=== PATIENT | male | born 1955 | race Caucasian/White ===

== ENCOUNTER 2016-10-20 21:41 | Inpatient (IN) | payer OTHER ==
--- NOTE | ~2016-10-20 | OP ---
Record Of Operation [facility] [address] [place]. [address] NAME: FREDA COBB SR : 55 STATUS : ADM IN PAT#: [id number] AGE: 61 ADM/REG DATE : 10/21/16 MR#: [id number] REPORT SERV DATE: 10/24/16 DICTATED BY: SONY MOLINA DATE: 10/24/16 REPORT STATUS : Draft TRANSCRIBED BY: MODL DATE: 10/24/16 DATE OF PROCEDURE: 10/24/2016 PREOPERATIVE DIAGNOSIS: The patient with ischemic threatened left lower extremity with previous thrombectomy and thrombolysis with recurrent ischemia. POSTOPERATIVE DIAGNOSIS: The patient with ischemic threatened left lower extremity with previous thrombectomy and thrombolysis with recurrent ischemia. SURGEON PERFORMED: Left femoral to distal popliteal and tibioperoneal trunk bypass using reverse saphenous vein. SURGEON: Sony Molina M.D. ELECTROMATIC TYPIST: Jarrod. DESCRIPTION OF PROCEDURE: The patient was placed under general endotracheal anesthesia. Both legs prepped and draped in a sterile fashion. Saphenous vein was removed from the right leg with VasoView technique. Left leg, the common femoral and superficial femoral- profunda were all exposed through a longitudinal incision in the thigh. The distal popliteal and tibioperoneal trunk were exposed through a medial knee incision. Below the knee, this was extension of the previous fasciotomy. The popliteal fascia was opened. The distal popliteal, tibioperoneal trunk, anterior tibial were all dissected and encircled with vessel loops. He was given 5000 units of heparin. The distal popliteal was opened and extended down to the tibioperoneal trunk. The vein was cut, spatulated, sewn end to side. There was a subfascial tunneling created up to the femoral region with the graft was pulled through. The femoral vessels were occluded. Arteriotomy made in the distal common femoral and extended with Segal scissors. End-to-side anastomosis was done to the vein graft. After this was done, retrograde and prograde flushing carried out at both anastomosis. Clamps were then released. The patient had decent flow below the bypass graft and the catheterization, although signals in the foot was still poor. He was given 5000 units of heparin during the procedure. The wounds were all irrigated and closed with 2-0 and 3-0 Vicryl, skin closed with subcuticular in the groin, and cielo at the knee. ESTIMATED BLOOD LOSS: 200 mL. The patient was stable during the operation, went to recovery room in good condition. MG/FREDDY Sony Molina M.D. / [id number] Record Of Operation [address] [address] NAME: FREDA COBB SR : 55 STATUS : ADM IN PAT#: [id number] AGE: 61 ADM/REG DATE : 10/21/16 MR#: [id number] REPORT SERV DATE: 10/24/16 DICTATED BY: SONY MOLINA DATE: 10/24/16 REPORT STATUS : Draft TRANSCRIBED BY: FREDDY DATE: 10/24/16 CC: Sony Molina M.D.
--- NOTE | ~2016-10-20 | OP ---
Record Of Operation [facility] [address] [place]. [address] NAME: FREDA COBB SR : 55 STATUS : ADM IN PAT#: [id number] AGE: 61 ADM/REG DATE : 10/21/16 MR#: [id number] REPORT SERV DATE: 10/24/16 DICTATED BY: JOSE MOLINA DATE: 10/24/16 REPORT STATUS : Draft TRANSCRIBED BY: MODL DATE: 10/24/16 DATE OF PROCEDURE: 10/23/2016 PREOPERATIVE DIAGNOSIS: Status post left lower limb ischemia with emergent thrombolysis and thrombectomy with recurrent ischemia of the left lower extremity. POSTOPERATIVE DIAGNOSIS: Status post left lower limb ischemia with emergent thrombolysis and thrombectomy with recurrent ischemia of the left lower extremity with findings of recurrent thrombosis of the superficial femoral artery and popliteal artery. SURGERY PERFORMED: 1. Left lower extremity arteriogram. 2. AngioJet thrombectomy of the SFA and popliteal. SURGEON: Jose Molina M.D. DESCRIPTION OF PROCEDURE: The patient was brought back to the operating suite from the ICU after developing cool extremity with signs of ischemia. This is recurrent from his initial presentation. Placed on the operating room table. Under IV sedation, the right femoral artery was cannulated with ultrasound direction. The UF was placed into the aorta and then this catheter was worked up and over the bifurcation. Angiogram of left lower extremity showing the common femoral profunda was open. The SFA was opened down to a previously placed stent and then occluded. I did reconstitute the distal popliteal. This was able to be crossed easily with a Glidewire. A 645 Terumo placed up and over the bifurcation, then AngioJet thrombectomy done of the entire SFA and proximal popliteal. After multiple passes, repeat angiogram finally showing flow through the area, although it was sluggish. The tibials were opened so far as anterior tibial but the runoff from the tibial vessels appeared to be slow as well. He was given heparin during the procedure. It was felt that we could not improve upon the latest angiogram. Therefore, the sheath was removed and Angio Seal was used for closure, which worked effectively. Dry dressings applied. ESTIMATED BLOOD LOSS: 30 mL. MG/MODL Jose Molina M.D. / [id number] CC: Jose Molina M.D.
--- NOTE | ~2016-10-20 | OP ---
Record Of Operation [facility] [address] [place]. [address] NAME: FREDA CERDA SR : 55 STATUS : ADM IN PAT#: [id number] AGE: 61 ADM/REG DATE : 10/21/16 MR#: [id number] REPORT SERV DATE: 11/01/16 DICTATED BY: LORETO HOLLEY DATE: 11/01/16 REPORT STATUS : Draft TRANSCRIBED BY: MODL DATE: 11/01/16 DATE OF PROCEDURE: 11/01/2016 PREOPERATIVE DIAGNOSES: Status post left leg revascularization and fasciotomy with necrotic muscle within fasciotomy incisions. POSTOPERATIVE DIAGNOSES: Status post left leg revascularization and fasciotomy with necrotic muscle within fasciotomy incisions. PROCEDURE: 1. Sharp excisional debridement of subcutaneous tissue, fascia, and muscle of both fasciotomy incision in the left lower leg, total of 40 sq cm in each incision. 2. Placement of negative pressure wound dressing. SURGEON: Loreto Holley M.D. SAXOPHONE ASSEMBLER: Luiza. ANESTHESIA: General endotracheal. ESTIMATED BLOOD LOSS: 25 mL. COMPLICATIONS: None. INDICATION: Mr. Cerda is a 61-year-old patient of Dr. Batista and Dr. Lorenzo, who underwent left leg revascularization and required fasciotomy. Both fasciotomy incisions were still open. He needs debridement. He was brought to the operating room for the same. DETAILS OF PROCEDURE: After informed consent was obtained, the patient was brought to the operating room and placed in supine position. After administration of anesthesia, he was intubated. He was prepped and draped in usual sterile fashion. I examined the medial fasciotomy incision first. There was obvious necrotic muscle in this. Sharp excisional debridement of the muscle was undertaken. There was significant amount of hematoma evacuated as well. Total length of the incision was 21 cm in length, width was 5 cm, proximal depth was 2 cm, although there was some tunneling of the hematoma. Total amount of muscle, subcutaneous tissue, and fascia debrided was approximately 40 sq cm. We ensured hemostasis. There was some reactivity of the muscle to cautery. Hemostasis was achieved. I irrigated with sterile saline. It was obvious this incision was not able to be closed at this point. I then turned my attention to the lateral fasciotomy incision. Again, there was necrotic muscle, subcutaneous tissue, and fascia. This was sharply excised down to healthy bleeding tissue. Proximal length of this incision was 21.5 cm in length, 5 cm in width, 2 cm in depth, although again there was some tunneling under the skin flaps. Hematoma was evacuated. Total amount of muscle, fascia, and subcutaneous tissue excised again was approximately 40 sq cm. Once again, I achieved hemostasis. I irrigated with sterile saline. After that, negative pressure wound dressings were placed over each incision. Good seal was achieved. The patient tolerated the procedure well without Record Of Operation [address] [address] NAME: FREDA CERDA : 55 STATUS : ADM IN [facility]#: [id number] AGE: 61 ADM/REG DATE : 10/21/16 MR#: [id number] REPORT SERV DATE: 11/01/16 DICTATED BY: LORETO HOLLEY. DATE: 11/01/16 REPORT STATUS : Draft TRANSCRIBED BY: FREDDY DATE: 11/01/16 complications. I was present and participated in the entire case. LENIN/FREDDY Loreto Holley M.D. / [id number] CC: Sony Batista M.D.
--- NOTE | ~2016-10-20 | HP ---
History And Physical [facility] [id number] [place]. [address] NAME: FREDA COBB SR : 55 STATUS : ADM IN [facility]#: [id number] AGE: 61 ADM/REG DATE : 10/21/16 MR#: [id number] REPORT SERV DATE: 10/21/16 DICTATED BY: JOSE BATISTA DATE: 10/21/16 REPORT STATUS : Draft TRANSCRIBED BY: MODL DATE: 10/21/16 DATE OF ADMISSION: 10/21/2016 HISTORY OF PRESENT ILLNESS: This is a 61-year-old male who presents to emergency room with acute ischemia of his left lower extremity for the past 4 hours. The patient complains of pain and numbness in his left lower extremity. He has a previous history of having a stent placed in his left lower extremity. PAST MEDICAL HISTORY: Includes atrial fibrillation and hypertension. REVIEW OF SYSTEMS: Essentially negative. PHYSICAL EXAMINATION: VITAL SIGNS: Blood pressure is 160/70, heart rate in the 80s, and afebrile. NECK: Reveals no bruits. HEART: His heart sounds normal, some irregularity noted. ABDOMEN: Soft. EXTREMITIES: Femoral pulses are present. No pedal pulses or popliteal pulses noted in the left foot. He has mottling of his left foot and also decreased sensation. He does have motor function. The right lower extremity shows adequate perfusion, pulses are not easily felt. IMPRESSION: 1. Acute ischemia of the left lower extremity. 2. Severe atherosclerotic peripheral vascular disease. PLAN: The plan is to take the patient directly to the operating room after starting on heparin for angiogram and thrombectomy. /FREDDY Jose Batista M.D. / [id number]
--- NOTE | ~2016-10-20 | OP ---
Record Of Operation [facility] [address] [place]. [address] NAME: FREDA COBB SR : 55 STATUS : ADM IN PAT#: [id number] AGE: 61 ADM/REG DATE : 10/21/16 MR#: [id number] REPORT SERV DATE: 10/22/16 DICTATED BY: SONY MOLINA DATE: 10/22/16 REPORT STATUS : Draft TRANSCRIBED BY: MODL DATE: 10/22/16 DATE OF PROCEDURE: 10/21/2016 PREOPERATIVE DIAGNOSIS: Status post emergency thrombectomy with thrombolysis of the left lower extremity secondary to threatened extremity. POSTOPERATIVE DIAGNOSES: 1. Acute compartment syndrome. 2. Stenosis with thrombus noted in the proximal superficial femoral artery. SURGERY PERFORMED: 1. Angiogram of left lower extremity. 2. Percutaneous thrombectomy. 3. Stent placement, a 6 x 120 in the upper superficial femoral artery. 4. Four quadrant fasciotomy of the calf. SURGEON: Sony Molina M.D. AUTOMATIC BANDSAW TENDER: Luiza. DESCRIPTION OF PROCEDURE: The patient was brought back to the operating suite after having a thrombolytic catheter with thrombectomy done four to five hours prior. The patient developed increasing calf pain during the thrombolysis. He was brought back to the operating suite, placed under general anesthesia. Prior to the surgery, the patient was noted to have extreme tenderness of the calf, particularly with passive motion of his ankles, diagnosing part of the problem being acute compartment syndrome. The leg was prepped and draped in a sterile fashion. An angiogram done through the thrombolytic sheath showing that the vessels were open. Tibial vessels were very small and appeared to be compressed. There was still some thrombus in the upper SFA and a possible stenotic area. The Penumbra #6 was then used to do a suction thrombectomy of the upper SFA after exchanging the short 6 sheath for a long 6, which was placed up and over the bifurcation. After thrombectomy with Penumbra, repeat film showing now the vessel was open but there was an area of probable stenosis proximal to the previous stent. This was then stented using a 6 x 120 stent. This was then ballooned with a 5 balloon and final film showing good flow through the SFA into the tibial vessels. When this was completed, the sheath was removed on the right. An Exoseal closure device was used due to the small vessels. The fasciotomy was then started by making an incision medial to the tibia 2 cm below the tibia longitudinally. This was carried through skin and subcutaneous tissue with the cautery unit. The superficial and deep posterior fascial compartments were opened with the cautery unit. Laterally, an incision was made between the tibia and fibula, again fairly long incision and the subcutaneous tissue divided with the cautery unit. The anterior and lateral compartments opened using the cautery unit as well. Hemostasis was achieved. He was given heparin during the procedure. The wounds were then closed with a vessel loop and cielo and then this was also packed with Surgicel dry dressings and Aureliano wrap were placed as well. The estimated blood loss for both procedures was 200 mL. He did appear to have Record Of Operation [address] [place]. [address] NAME: FREDA COBB : 55 STATUS : ADM IN PAT#: [id number] AGE: 61 ADM/REG DATE : 10/21/16 MR#: [id number] REPORT SERV DATE: 10/22/16 DICTATED BY: SONY MOLINA DATE: 10/22/16 REPORT STATUS : Draft TRANSCRIBED BY: MODL DATE: 10/22/16 better flow to his foot. He was taken back to the ICU on a heparin drip. MG/MODL Sony Molina M.D. / [id number] CC: Sony Molina M.D.
--- NOTE | ~2016-10-20 | DS ---
Discharge Summary [facility] [address] [place]. [address] NAME: FREDA COBB SR : 55 STATUS : DIS IN PAT#: [id number] AGE: 61 ADM/REG DATE : 10/21/16 MR#: [id number] REPORT SERV DATE: 11/18/16 DICTATED BY: SONY MOLINA DATE: 11/18/16 REPORT STATUS : Draft TRANSCRIBED BY: FREDDY DATE: 11/18/16 Data Collection from hospitalization DISCHARGE DIAGNOSES: 1. Left leg critical limb ischemia. 2. Paroxysmal atrial fibrillation. 3. Anticoagulation. 4. Hypertension. 5. Severe atherosclerotic peripheral vascular disease. 6. Chronic obstructive pulmonary disease. 7. Tobacco use. CONSULTATIONS: Prasanna France MD PROCEDURES PERFORMED: 1. Aortogram, left lower extremity runoff, thrombolysis using tPA, arterial thrombectomy using AngioJet, placement of thrombolytic catheter, 10/21/2016. 2. Angiogram of the left lower extremity; percutaneous thrombectomy; stent placement, 6 x 120 in the upper superficial femoral artery; four quadrant fasciotomy of the calf; 10/21/2016. 3. Left lower extremity arteriogram, AngioJet thrombectomy of the SFA and popliteal, 10/23/2016. 4. Left femoral to distal popliteal and tibioperoneal trunk bypass using reverse saphenous vein, 10/24/2016. 5. Sharp excisional debridement of subcutaneous tissue, fascia, and muscle of both fasciotomy incisions in the left lower leg, a total of 40 sq cm in each incision; placement of negative pressure wound dressing; 11/01/2016. 6. Partial closure of fasciotomy medially with re-application of negative pressure dressing, 11/04/2016. MEDICATIONS: Cordarone 200 mg twice a day, Cosopt one drop in each eye twice a day, Lovenox 80 mg subcutaneously every 12 hours, Neurontin 300 mg twice a day, Lopid 600 mg daily, Xalatan one drop at bedtime, Lopressor 25 mg twice a day, Prilosec 20 mg before breakfast, Senokot-S one tablet twice a day, Spiriva HandiHaler one capsule via inhaler daily, Tylenol 650 mg every four hours as needed, Ativan 1 mg every four hours as needed, Percocet 5/325 one to two tablets every four hours as needed, Catapres 0.1 mg every six hours as needed, Proventil two puffs via inhaler every four hours as needed, Mobic 15 mg daily as needed, Viagra 100 mg as needed, lisinopril 40 mg daily, hydrochlorothiazide 25 mg daily. CONDITION AT DISCHARGE: Stable. DISPOSITION: The patient was discharged to [facility] on a regular diet with activities as instructed. HOSPITAL COURSE: This is a 61-year-old man who presented to the emergency room with acute ischemia of his left lower extremity over the past four hours. He complained of pain and numbness in the left lower extremity. He has a previous history of having a stent placed in the left lower extremity. The patient was felt to have severe atherosclerotic peripheral Discharge Summary [address] [place]. [address] NAME: RFEDA COBB : 55 STATUS : DIS IN PAT#: [id number] AGE: 61 ADM/REG DATE : 10/21/16 MR#: [id number] REPORT SERV DATE: 11/18/16 DICTATED BY: SONY MOLINA DATE: 11/18/16 REPORT STATUS : Draft TRANSCRIBED BY: FREDDY DATE: 11/18/16 vascular disease and acute ischemia of the left lower extremity. It was felt he should be taken directly to the operating room after starting on heparin for angiogram and thrombectomy. He was admitted to the hospital at this time for further evaluation and treatment. Upon admission, he was taken to the operating room where he underwent the above-mentioned procedures. He tolerated these well and there were no complications. The following day, he had palpable pulses in his foot. Heparin was continued - Coumadin/Eliquis. On 10/23/2016, he was still bleeding. His dressing was changed. Heparin was stopped. Hematocrit had decreased into the 20s. He was transfused. He was noted to have recurrent ischemia of the left lower extremity with findings of recurrent thrombosis of the superficial femoral artery and popliteal vein. He was taken back to the operating room where he underwent the above- mentioned procedures. He tolerated this well and there were no complications. On 10/24/2016, the patient had ischemic, threatened left lower extremity with previous thrombectomy and thrombolysis with recurrent ischemia. It was felt that he would need to undergo left femoral to distal popliteal and tibioperoneal trunk bypass using reverse saphenous vein. He was taken to the operating room where he underwent the above-mentioned procedures. He tolerated this well and there were no complications. On 10/25/2016, he had minimal blood flow. Heparin was continued. His pain was difficult to control. His T-max was 101.3. The following day, he was seen by Dr. Prasanna France regarding atrial fibrillation with rapid ventricular response. Intermittently, he had atrial fibrillation since admission with rapid ventricular response. He was currently on a heparin drip. He denied any chest pain or palpitations. He denied dyspnea currently and denied any history of previous exertional chest pain or dyspnea on exertion. The patient's older sister, who is a nurse, was present at the bedside and reported approximately a one- year history of followup in the [facility] for paroxysmal atrial fibrillation. She was aware that the patient had never been anticoagulated and had never been on any antiarrhythmic medication. He had only been on a beta-mulugeta. The patient was currently anticoagulated on heparin. He had recent hypotension following surgery and with that in mind, we would bypass intravenous diltiazem for rate control and attempt intravenous loading and infusion of amiodarone. Given the patient's relatively young age, we did not desire this as a long-term option. Reportedly, the patient was asymptomatic with previous paroxysmal atrial fibrillation episodes. Recent surgeries and vascular disease were likely contributing to elevated ventricular rate at this time. Echocardiogram was requested to evaluate cardiac structure and function. We were going [facility]. Echocardiogram was performed. On 10/27/2016, the left foot was warm. There was reasonable neurologic function in the left foot. He was in atrial fibrillation on heparin drip. He did have some hallucinations the previous evening. It was felt that this was questionable withdrawal from EtOH abuse. He was changed to oral amiodarone. Metoprolol was added. Withdrawal protocol was begun. His left foot was tender, but he was able to move the foot. He still had sensory deficit. He became febrile overnight to 101.9. Heparin drip continued. On 10/30/2016, there had been no significant change. H and H remained stable. He was transferred to the floor. Lovenox was started. He remained in a sinus rhythm at this time. Pain controlled was okay with the STRAWHAT SIZER. He was working with Physical Therapy. On Discharge [facility] [address] [place]. [address] NAME: FREDA COBB SR : 55 STATUS : DIS IN PAT#: [id number] AGE: 61 ADM/REG DATE : 10/21/16 MR#: [id number] REPORT SERV DATE: 11/18/16 DICTATED BY: SONY MOLINA DATE: 11/18/16 REPORT STATUS : Draft TRANSCRIBED BY: MODL DATE: 11/18/16 11/01/2016, his incisions were clean, dry, and intact. He was taken to the operating room where he underwent the above-mentioned procedures and he tolerated this well. There were no complications. The following day, his pain was controlled with the STRAWHAT SIZER. White count was 12.2. Wound VAC was intact. He had pain with any pressure on the plantar aspect of the foot/flexion of the ankle in the left. On 11/04/2016, the patient was taken back to the operating room where he underwent the above-mentioned procedure. He tolerated this well. There were no complications. On 11/05/2016, he still had some left lower extremity calf and garrett pain with ambulation. He said he had been flexing and extending the left ankle that his mobility was limited. He did have a bowel movement. Pain was controlled. He was reevaluated by Physical Therapy. The following day, his pain was controlled with oral medications. Discharge planning was performed. INR level was 1.1. On 11/07/2016, the patient's pain was controlled. He was working with Physical Therapy. He was ambulating. His left foot was pink with good capillary refill and sensory and good motor function. Discharge instructions were given. Due to his improved and stable condition, he was discharged to [facility] with the above-stated instructions. Information collected by: Cristal Lucero I submit the above information as my discharge summary. TG/FREDDY Sony Molina M.D. / [id number] CC: Isac Doan M.D. [facility]
--- NOTE | ~2016-10-20 | CN ---
Consultation Report [facility] [address] [place]. [address] NAME: FREDA COBB SR : 55 STATUS : ADM IN PAT#: [id number] AGE: 61 ADM/REG DATE : 10/21/16 MR#: [id number] REPORT SERV DATE: 10/26/16 DICTATED BY: MAX FRANCE DATE: 10/26/16 REPORT STATUS : Draft TRANSCRIBED BY: MODL DATE: 10/26/16 CARDIOLOGY CONSULTATION DATE OF CONSULTATION: 10/26/2016 CARDIOLOGY CONSULTATION REASON FOR CONSULTATION: Atrial fibrillation with rapid ventricular rate. HISTORY OF PRESENT ILLNESS: A 61-year-old male who presented for evaluation for complaints of numbness and pain to the left lower extremity. The patient with a history of previous stenting in the left lower extremity - Details unknown. Vascular Surgery consultation called due to cold foot and absence of pulses. The patient underwent aortogram with lower extremity runoff and found to have occlusion of the left superficial femoral artery, popliteal and tibial arteries. He underwent AngioJet Thrombectomy and placement of the tPA catheter. Subsequently return to surgery with stenting and fasciotomy for compartment syndrome. Stent placed in the superficial femoral artery. He then developed recurrent loss of pulses with repeat thrombectomy. Subsequently on 10/24/2016, he underwent a left femoral to distal popliteal bypass with reversed saphenous vein graft. Intermittently has had atrial fibrillation since admission, with rapid ventricular rate. He is currently on a heparin drip. He denies chest pain, palpitations. He denies dyspnea currently and denies any history of previous exertional chest pain or dyspnea on exertion. The patient's adult sister who is a nurse is present at the bedside and reports approximately one year history of a followup in the [facility] for paroxysmal atrial fibrillation. Details of that are unknown, however, she is aware that the patient has never been anticoagulated, and has never been on any antiarrhythmic medication. He has only been on a beta-mulugeta. PAST MEDICAL HISTORY: 1. Paroxysmal atrial fibrillation. 2. Reported COPD. 3. Hypertension. 4. Peripheral vascular disease. 5. Hyperlipidemia. FAMILY HISTORY: The patient is adopted. Details unknown. SOCIAL HISTORY: Drinks approximately a six-pack of beer per day on average. Current smoker, smoked most of his adult life. Denies illicit drug use. REVIEW OF SYSTEMS: Negative for all organ systems except per the history of present illness. PHYSICAL EXAMINATION: VITALS: Afebrile. Pulse 128 and regular. Respirations 16 and unlabored. Saturating 99% Consultation Report [facility] [address] [place]. [address] NAME: FREDA COBB SR : 55 STATUS : ADM IN PAT#: [id number] AGE: 61 ADM/REG DATE : 10/21/16 MR#: [id number] REPORT SERV DATE: 10/26/16 DICTATED BY: MAX FRANCE DATE: 10/26/16 REPORT STATUS : Draft TRANSCRIBED BY: MODRashmi DATE: 10/26/16 on 2 liters nasal cannula. GENERAL: Middle-aged male in mild distress secondary to a left lower extremity pain. HEENT: Normal. NECK: Supple, no JVD or bruit, normal carotid upstroke bilaterally, no thyromegaly. LUNGS: Clear to auscultation and percussion. No wheezes, rales or rhonchi. No use of accessory muscles. CARDIOLOGY: Irregularly regular rhythm. ABDOMEN: Bowel sounds positive, soft, nontender, and nondistended. No masses or aortic bruits. No hepatosplenomegaly or hepatojugular reflux. EXTREMITIES: No edema. Normal pulses. No clubbing or cyanosis. SKIN: Warm and dry, no significant rash. NEUROLOGIC: Alert and oriented x 3. Appropriate mood. EKG 10/20/2016, atrial fibrillation with rapid ventricular rate 108 beats per minute. Subsequent EKG 10/22/2016, atrial fibrillation, rapid ventricular rate 122 beats per minute. LABORATORY DATA: WBC 8.9, hemoglobin 9.3, hematocrit 27.1, platelets 136,000. Potassium 3.9, creatinine 1.08. IMPRESSION: Atrial fibrillation with rapid ventricular rate - the patient's history with reported paroxysmal atrial fibrillation of at least one year. The patient's CHADS2-Vasc score is 2 for vascular disease and hypertension. The patient currently anticoagulated on heparin. Recent hypotension following surgery with that in mind, we will bypass intravenous diltiazem for rate control attempt intravenous loading and infusion of amiodarone. Given the patient's relatively young age, do not desire this as a long-term option. Reportedly, the patient asymptomatic with previous paroxysmal atrial fibrillation episodes. Recent surgeries and vascular disease likely contributing to elevated ventricular rate at this time. An echocardiogram has been ordered to evaluate cardiac structure and function. Given the patient's risk factors at some point likely as an outpatient, nuclear stress test will be arranged unless previously performed through the [facility]. We will attempt to obtain records from the [place] system. Thank you for the opportunity to see the patient in consultation. CSL/FREDDY Prasanna France M.D. / [id number] CC: Consultation Report [address] [address] NAME: FREDA COBB : 55 STATUS : ADM IN [facility]#: [id number] AGE: 61 ADM/REG DATE : 10/21/16 MR#: [id number] REPORT SERV DATE: 10/26/16 DICTATED BY: MAX FRANCE DATE: 10/26/16 REPORT STATUS : Draft TRANSCRIBED BY: FREDDY DATE: 10/26/16 Sony Batista M.D.
--- NOTE | ~2016-10-20 | OP ---
Record Of Operation [facility] [address] [place]. [address] NAME: FREDA COBB SR : 55 STATUS : ADM IN PAT#: [id number] AGE: 61 ADM/REG DATE : 10/21/16 MR#: [id number] REPORT SERV DATE: 11/04/16 DICTATED BY: SONY BATISTA DATE: 11/04/16 REPORT STATUS : Draft TRANSCRIBED BY: MODL DATE: 11/04/16 DATE OF PROCEDURE: 11/04/2016 PREOPERATIVE DIAGNOSES: Status post ischemic leg with acute compartment syndrome and fasciotomies with recent debridement of necrotic muscle and placement of negative pressure dressing. POSTOPERATIVE DIAGNOSES: Status post ischemic leg with acute compartment syndrome and fasciotomies with recent debridement of necrotic muscle and placement of negative pressure dressing. SURGERY PERFORMED: Partial closure of fasciotomy, medially with re-application of negative pressure dressing. SURGEON: Sony Batista M.D. CASING BUILDER: Saige. DESCRIPTION OF PROCEDURE: The patient was placed under general anesthesia. The leg prepped and draped in a sterile fashion. The previous negative pressure dressing was removed. The muscle appeared to be clean. There were no additional areas of necrosis. A portion of the medial fasciotomy was closed both proximal and distal using 3-0 Prolene sutures. Most of this could not be closed due to the amount of tension and the size of the muscle exposed. With this being the case, the area was irrigated and then re-application of a negative pressure dressing was applied in standard fashion. The patient tolerated the procedure well, went back to recovery room in good condition. No significant blood loss noted. MG/FREDDY Sony Batista M.D. / [id number] CC: Sony Batista M.D.
--- NOTE | ~2016-10-20 | OP ---
Record Of Operation [facility] [address] [place]. [address] NAME: FREDA COBB SR : 55 STATUS : ADM IN PAT#: [id number] AGE: 61 ADM/REG DATE : 10/21/16 MR#: [id number] REPORT SERV DATE: 10/21/16 DICTATED BY: SONY MOLINA DATE: 10/21/16 REPORT STATUS : Draft TRANSCRIBED BY: MODL DATE: 10/21/16 DATE OF PROCEDURE: 10/21/2016 PREOPERATIVE DIAGNOSIS: Acute ischemia of the left lower extremity with threatened limb loss. POSTOPERATIVE DIAGNOSIS: Thrombosis of superficial, femoral, popliteal, and tibial vessels. SURGERY PERFORMED: 1. Aortogram. 2. Left lower extremity runoff. 3. Thrombolysis using tPA. 4. Arterial thrombectomy using the AngioJet. 5. Placement of thrombolytic catheter. SURGEON: Sony Molina M.D. DESCRIPTION OF PROCEDURE: The patient was placed under general anesthesia. The right femoral artery was cannulated with ultrasound direction, needle wire and sheath were placed. A UF catheter was placed into the abdominal aorta, an aortogram done showing both renals were patent, the aorta was patent, both iliacs were patent. He was pulled down the distal aorta. Runoff films showing the left iliac, common, external, and internal were patent. The common femoral was patent. The SFA was patent into the upper mid thigh, then total occlusion about 4 cm above a previously placed stent, and there was no filling of the popliteal or tibial vessels. The right leg showed iliacs were patent as well as the common femoral, proximal and superficial femoral, and profunda. With this finding, the heparin had been stopped, a wire placed down through the occlusion into the tibials, this was then treated with thrombolysis using the power-pulse spray and the AngioJet where 10 mg of tPA was infused from the popliteal up to the mid upper third of the SFA; this was left to dwell for 20 minutes. Repeat film showing some flow through the area but obvious thrombus still present. An AngioJet thrombectomy was done using approximately a little over 200 mL going into the SFA, popliteal, and proximal tibials, this was completed, we then had flow down to the tibial area. A trailblazer was placed down into the posterior tibial, another 4 mg were infiltrated with hand injection from the ankle up to the trifurcation. When this was completed, it looked better, although further AngioJet was then done, and then a thrombolytic catheter was placed in the very distal popliteal up to the area of occlusion, this was then sewn to the thigh and dressings were applied. ESTIMATED BLOOD LOSS: 30 mL. He was taken to the recovery room in stable condition. /FREDDY Record Of [address] [address] NAME: FREDA COBB SR : 55 STATUS : ADM IN PAT#: [id number] AGE: 61 ADM/REG DATE : 10/21/16 MR#: [id number] REPORT SERV DATE: 10/21/16 DICTATED BY: SONY MOLINA DATE: 10/21/16 REPORT STATUS : Draft TRANSCRIBED BY: FREDDY DATE: 10/21/16 Sony Molina M.D. / [id number]
[~2016-10-20 21:41] MED LIST: ALBUTEROL INH; ASA5GR PO; ASAB PO; CLARIT10 PO; COREG3 PO; COSOPT OPH; DORZOLAMIDE2 % OP; ELIQUIS 5 MG TAB5 MG PO; HCTZ25B PO; HYDROCHLOROT25 MG PO; LIPITOR40 PO; LISINOPRIL40 MG PO; LOPID6 PO; MOBIC15 MG PO; NORV10 PO; PCET PO; PLAVIX PO; PRILO PO; PROTONIX PO; PROVHFA INH; SPIRIVA INH; VIAGRA100 MG PO; XALAT OPH
[2016-10-20 22:04] LABS: BASOPHILS 1.1 %; BASOPHILS ABSOLUTE 0.09 10/3/uL (0.0-0.16); EOSINOPHILS 6.8 %; EOSINOPHILS ABSOLUTE 0.57 10/3/uL (0.0-0.53); ER CBC TAT 0 Hrs 03 Mins; HEMATOCRIT 47.5 % (40.0-51.0); HEMOGLOBIN 16.3 g/dL (13.6-17.8); IMMATURE GRANULOCYTES 0.7 %; IMMATURE GRANULOCYTES ABSOLUTE 0.06 10/3/uL (0.0-0.11); LYMPHOCYTES 30.9 %; MEAN CORPUS HGB CONC 34.3 g/dL (32.0-36.0); MEAN CORPUSCULAR VOLUME 90.5 fL (80-100); MEAN PLATELET VOLUME 9.6 fL (9.2-13.0); MONOCYTES 5.8 %; MONOCYTES ABSOLUTE 0.49 10/3/uL (0.21-1.20); NEUTROPHILS 54.7 %; PLATELET COUNT 206 10/3/uL (150-400); RBC DISTRIBUTION WIDTH 13.2 % (12.0-16.0); RED CELL COUNT 5.25 10/6/uL (4.7-6.1); WHITE BLOOD CELLS 8.4 10/3/uL (4.5-10.5)
[2016-10-20 22:05] LABS: MANUAL DIFF NO %
[2016-10-20 22:21] LABS: BUN (BLOOD UREA NITROGEN) 20 MG/DL (6-23); CHEST PAIN PROFILE TAT 0 Hrs 20 Mins; CHLORIDE, SERUM 102 MMOL/L (96-112); CO2 (CARBON DIOXIDE) 26 MMOL/L (24-34); CREATININE 1.18 MG/DL (0.70-1.30); GFR AFRICAN AMERICAN 77 ML/MIN (>=60); GFR NON AFRICAN AMERICAN 66 ML/MIN (>=60); PARTIAL THROMBO TIME 24.9 SEC (22.5-37.2); POTASSIUM, SERUM 3.9 MMOL/L (3.5-5.3); PROTIME (NOT ORD) 12.6 SEC (12.0-14.5); SODIUM, SERUM 140 MMOL/L (135-148); TROPONIN I <0.02 NG/ML (<0.05)
[2016-10-20 22:22] LABS: CALCIUM, SERUM 8.4 MG/DL (8.5-10.4); GLUCOSE, SERUM 101 MG/DL (60-99)
[2016-10-21 11:07] LABS: BASOPHILS 0.2 %; BASOPHILS ABSOLUTE 0.02 10/3/uL (0.0-0.16); EOSINOPHILS 0.2 %; EOSINOPHILS ABSOLUTE 0.02 10/3/uL (0.0-0.53); HEMOGLOBIN 13.9 g/dL (13.6-17.8); IMMATURE GRANULOCYTES 0.4 %; IMMATURE GRANULOCYTES ABSOLUTE 0.04 10/3/uL (0.0-0.11); LYMPHOCYTES 4.7 %; MEAN CORPUS HGB CONC 34.2 g/dL (32.0-36.0); MEAN CORPUSCULAR HEMOGLOB 31.4 pg (26.0-34.0); MEAN CORPUSCULAR VOLUME 91.9 fL (80-100); MEAN PLATELET VOLUME 9.3 fL (9.2-13.0); MONOCYTES 4.2 %; MONOCYTES ABSOLUTE 0.45 10/3/uL (0.21-1.20); NEUTROPHILS 90.3 %; NEUTROPHILS ABSOLUTE 9.63 10/3/uL (2.02-8.40); RBC DISTRIBUTION WIDTH 13.1 % (12.0-16.0); RED CELL COUNT 4.43 10/6/uL (4.7-6.1); WHITE BLOOD CELLS 10.7 10/3/uL (4.5-10.5)
[2016-10-21 11:10] LABS: HEMATOCRIT 40.7 % (40.0-51.0); MANUAL DIFF NO %; PLATELET COUNT 137 10/3/uL (150-400)
[2016-10-21 11:18] LABS: CALCIUM, SERUM 7.6 MG/DL (8.5-10.4); CHLORIDE, SERUM 106 MMOL/L (96-112); CO2 (CARBON DIOXIDE) 23 MMOL/L (24-34); CREATININE 1.09 MG/DL (0.70-1.30); GFR AFRICAN AMERICAN 84 ML/MIN (>=60); GFR NON AFRICAN AMERICAN 73 ML/MIN (>=60); POTASSIUM, SERUM 4.4 MMOL/L (3.5-5.3); SODIUM, SERUM 138 MMOL/L (135-148)
[2016-10-21 11:20] LABS: BUN (BLOOD UREA NITROGEN) 16 MG/DL (6-23); GLUCOSE, SERUM 144 MG/DL (60-99)
[2016-10-21 11:29] LABS: PARTIAL THROMBO TIME > 150.0 SEC (22.5-37.2)
[2016-10-21 11:33] LABS: INTERNATIONAL NORMAL RATI 1.4 UNITS (-)
[2016-10-21 11:34] LABS: PROTIME (NOT ORD) 17.2 SEC (12.0-14.5)
[2016-10-21 14:00] LABS: BASOPHILS 0.1 %; BASOPHILS ABSOLUTE 0.01 10/3/uL (0.0-0.16); EOSINOPHILS 0.1 %; EOSINOPHILS ABSOLUTE 0.01 10/3/uL (0.0-0.53); HEMATOCRIT 37.9 % (40.0-51.0); HEMOGLOBIN 12.9 g/dL (13.6-17.8); IMMATURE GRANULOCYTES 0.5 %; IMMATURE GRANULOCYTES ABSOLUTE 0.06 10/3/uL (0.0-0.11); LYMPHOCYTES ABSOLUTE 0.58 10/3/uL (0.67-4.30); MEAN CORPUSCULAR HEMOGLOB 30.5 pg (26.0-34.0); MEAN CORPUSCULAR VOLUME 89.6 fL (80-100); MEAN PLATELET VOLUME 9.7 fL (9.2-13.0); MONOCYTES ABSOLUTE 0.46 10/3/uL (0.21-1.20); NEUTROPHILS 90.3 %; NEUTROPHILS ABSOLUTE 10.39 10/3/uL (2.02-8.40); PLATELET COUNT 175 10/3/uL (150-400); RBC DISTRIBUTION WIDTH 13.3 % (12.0-16.0); RED CELL COUNT 4.23 10/6/uL (4.7-6.1); WHITE BLOOD CELLS 11.5 10/3/uL (4.5-10.5)
[2016-10-21 14:01] LABS: MANUAL DIFF NO %
[2016-10-21 14:08] LABS: INTERNATIONAL NORMAL RATI 1.1 UNITS (-)
[2016-10-21 14:09] LABS: PARTIAL THROMBO TIME 40.7 SEC (22.5-37.2)
[2016-10-21 14:10] LABS: PROTIME (NOT ORD) 14.5 SEC (12.0-14.5)
[2016-10-21] MEDS ORDERED: PLAVIX PO (15:36)
[2016-10-21] MEDS ORDERED: ZESTRIL40 MG PO (15:37)
[2016-10-21] MEDS ORDERED: LOPID6 PO (15:38)
[2016-10-21 18:48] LABS: BASOPHILS 0.1 %; BASOPHILS ABSOLUTE 0.01 10/3/uL (0.0-0.16); EOSINOPHILS 0 %; HEMOGLOBIN 11.2 g/dL (13.6-17.8); IMMATURE GRANULOCYTES 0.6 %; IMMATURE GRANULOCYTES ABSOLUTE 0.06 10/3/uL (0.0-0.11); LYMPHOCYTES 7.1 %; LYMPHOCYTES ABSOLUTE 0.77 10/3/uL (0.67-4.30); MEAN CORPUS HGB CONC 33.4 g/dL (32.0-36.0); MEAN CORPUSCULAR HEMOGLOB 29.8 pg (26.0-34.0); MEAN CORPUSCULAR VOLUME 89.1 fL (80-100); MEAN PLATELET VOLUME 9.4 fL (9.2-13.0); MONOCYTES ABSOLUTE 0.54 10/3/uL (0.21-1.20); NEUTROPHILS 87.2 %; NEUTROPHILS ABSOLUTE 9.41 10/3/uL (2.02-8.40); PLATELET COUNT 168 10/3/uL (150-400); RBC DISTRIBUTION WIDTH 13.1 % (12.0-16.0); RED CELL COUNT 3.76 10/6/uL (4.7-6.1); WHITE BLOOD CELLS 10.8 10/3/uL (4.5-10.5)
[2016-10-21 18:50] LABS: HEMATOCRIT 33.5 % (40.0-51.0); MANUAL DIFF NO %
[2016-10-21 19:00] LABS: PARTIAL THROMBO TIME 125.2 SEC (22.5-37.2)
[2016-10-22 01:01] LABS: BASOPHILS 0.1 %; BASOPHILS ABSOLUTE 0.01 10/3/uL (0.0-0.16); EOSINOPHILS 0 %; HEMOGLOBIN 9.6 g/dL (13.6-17.8); IMMATURE GRANULOCYTES 0.5 %; IMMATURE GRANULOCYTES ABSOLUTE 0.05 10/3/uL (0.0-0.11); LYMPHOCYTES 10.6 %; LYMPHOCYTES ABSOLUTE 1.12 10/3/uL (0.67-4.30); MEAN CORPUS HGB CONC 33.6 g/dL (32.0-36.0); MEAN CORPUSCULAR HEMOGLOB 30.2 pg (26.0-34.0); MEAN CORPUSCULAR VOLUME 89.9 fL (80-100); MEAN PLATELET VOLUME 9.8 fL (9.2-13.0); MONOCYTES 10.8 %; MONOCYTES ABSOLUTE 1.14 10/3/uL (0.21-1.20); NEUTROPHILS ABSOLUTE 8.26 10/3/uL (2.02-8.40); PLATELET COUNT 174 10/3/uL (150-400); RBC DISTRIBUTION WIDTH 13.2 % (12.0-16.0); RED CELL COUNT 3.18 10/6/uL (4.7-6.1); WHITE BLOOD CELLS 10.6 10/3/uL (4.5-10.5)
[2016-10-22 01:02] LABS: HEMATOCRIT 28.6 % (40.0-51.0); MANUAL DIFF NO %
[2016-10-22 06:01] LABS: BASOPHILS 0.2 %; BASOPHILS ABSOLUTE 0.02 10/3/uL (0.0-0.16); EOSINOPHILS 0.1 %; EOSINOPHILS ABSOLUTE 0.01 10/3/uL (0.0-0.53); HEMATOCRIT 26.2 % (40.0-51.0); HEMOGLOBIN 8.9 g/dL (13.6-17.8); IMMATURE GRANULOCYTES 0.9 %; IMMATURE GRANULOCYTES ABSOLUTE 0.09 10/3/uL (0.0-0.11); LYMPHOCYTES 12.9 %; LYMPHOCYTES ABSOLUTE 1.35 10/3/uL (0.67-4.30); MEAN CORPUSCULAR HEMOGLOB 31.1 pg (26.0-34.0); MEAN CORPUSCULAR VOLUME 91.6 fL (80-100); MONOCYTES 12.1 %; MONOCYTES ABSOLUTE 1.27 10/3/uL (0.21-1.20); NEUTROPHILS 73.8 %; NEUTROPHILS ABSOLUTE 7.74 10/3/uL (2.02-8.40); PLATELET COUNT 168 10/3/uL (150-400); RED CELL COUNT 2.86 10/6/uL (4.7-6.1); WHITE BLOOD CELLS 10.5 10/3/uL (4.5-10.5)
[2016-10-22 06:02] LABS: MANUAL DIFF NO %
[2016-10-22 06:14] LABS: PARTIAL THROMBO TIME 70.2 SEC (22.5-37.2)
[2016-10-22 06:27] LABS: CALCIUM, SERUM 7.4 MG/DL (8.5-10.4); CHLORIDE, SERUM 102 MMOL/L (96-112); CO2 (CARBON DIOXIDE) 23 MMOL/L (24-34); CREATININE 1.05 MG/DL (0.70-1.30); GFR AFRICAN AMERICAN 88 ML/MIN (>=60); GFR NON AFRICAN AMERICAN 76 ML/MIN (>=60); GLUCOSE, SERUM 139 MG/DL (60-99); POTASSIUM, SERUM 4.1 MMOL/L (3.5-5.3); SODIUM, SERUM 138 MMOL/L (135-148)
[2016-10-22 06:30] LABS: BUN (BLOOD UREA NITROGEN) 12 MG/DL (6-23)
[2016-10-22 14:58] LABS: BASOPHILS 0.3 %; BASOPHILS ABSOLUTE 0.04 10/3/uL (0.0-0.16); EOSINOPHILS 0.4 %; EOSINOPHILS ABSOLUTE 0.05 10/3/uL (0.0-0.53); IMMATURE GRANULOCYTES 1.1 %; IMMATURE GRANULOCYTES ABSOLUTE 0.15 10/3/uL (0.0-0.11); LYMPHOCYTES ABSOLUTE 3.09 10/3/uL (0.67-4.30); MEAN CORPUS HGB CONC 34.6 g/dL (32.0-36.0); MEAN CORPUSCULAR HEMOGLOB 30.8 pg (26.0-34.0); MEAN PLATELET VOLUME 9.8 fL (9.2-13.0); MONOCYTES 11.4 %; NEUTROPHILS 64.8 %; NEUTROPHILS ABSOLUTE 9.11 10/3/uL (2.02-8.40); PLATELET COUNT 184 10/3/uL (150-400); RBC DISTRIBUTION WIDTH 13.2 % (12.0-16.0)
[2016-10-22 14:59] LABS: HEMATOCRIT 23.1 % (40.0-51.0); MANUAL DIFF NO %; MEAN CORPUSCULAR VOLUME 88.8 fL (80-100)
[2016-10-22 15:05] LABS: PARTIAL THROMBO TIME 69.1 SEC (22.5-37.2)
[2016-10-23 04:08] LABS: BASOPHILS 0.3 %; BASOPHILS ABSOLUTE 0.05 10/3/uL (0.0-0.16); EOSINOPHILS 0.5 %; EOSINOPHILS ABSOLUTE 0.08 10/3/uL (0.0-0.53); LYMPHOCYTES 29.9 %; LYMPHOCYTES ABSOLUTE 4.51 10/3/uL (0.67-4.30); MEAN CORPUS HGB CONC 34.1 g/dL (32.0-36.0); MEAN CORPUSCULAR VOLUME 91.1 fL (80-100); MEAN PLATELET VOLUME 9.8 fL (9.2-13.0); MONOCYTES 11.5 %; MONOCYTES ABSOLUTE 1.74 10/3/uL (0.21-1.20); NEUTROPHILS 55.8 %; NEUTROPHILS ABSOLUTE 8.41 10/3/uL (2.02-8.40); PLATELET COUNT 199 10/3/uL (150-400); WHITE BLOOD CELLS 15.1 10/3/uL (4.5-10.5)
[2016-10-23 04:09] LABS: HEMATOCRIT 18.5 % (40.0-51.0); HEMOGLOBIN 6.3 g/dL (13.6-17.8); MANUAL DIFF NO %; RED CELL COUNT 2.03 10/6/uL (4.7-6.1)
[2016-10-23 04:15] LABS: PARTIAL THROMBO TIME 60.1 SEC (22.5-37.2)
[2016-10-23 04:25] LABS: CALCIUM, SERUM 7.3 MG/DL (8.5-10.4); CHLORIDE, SERUM 100 MMOL/L (96-112); CO2 (CARBON DIOXIDE) 24 MMOL/L (24-34); CREATININE 1.52 MG/DL (0.70-1.30); GFR AFRICAN AMERICAN 57 ML/MIN (>=60); GFR NON AFRICAN AMERICAN 49 ML/MIN (>=60); GLUCOSE, SERUM 131 MG/DL (60-99); POTASSIUM, SERUM 3.6 MMOL/L (3.5-5.3); SGOT(AST) 27 U/L (5-40); SGPT(ALT) 52 U/L (5-65); SODIUM, SERUM 135 MMOL/L (135-148); TOTAL BILIRUBIN 0.5 MG/DL (0-1.2)
[2016-10-23 04:29] LABS: A/G RATIO 1.1 (0.7-1.9); ALBUMIN 2.5 G/DL (3.5-5.0); ALKALINE PHOSPHATASE 37 U/L (45-117); BUN (BLOOD UREA NITROGEN) 20 MG/DL (6-23); GLOBULIN 2.2 G/DL (2.5-4.1); TOTAL PROTEIN 4.7 G/DL (6.0-8.5)
[2016-10-23 10:45] LABS: HEMOGLOBIN 7.1 g/dL (13.6-17.8)
[2016-10-23 10:46] LABS: HEMATOCRIT 20.7 % (40.0-51.0)
[2016-10-23] MEDS ORDERED: LISINOPRIL PO (14:40)
[2016-10-23] MEDS ORDERED: HCTZ PO ×2 (14:41→14:43)
[2016-10-23 17:31] LABS: BASOPHILS 0.2 %; BASOPHILS ABSOLUTE 0.03 10/3/uL (0.0-0.16); EOSINOPHILS 0.3 %; EOSINOPHILS ABSOLUTE 0.04 10/3/uL (0.0-0.53); HEMATOCRIT 22.2 % (40.0-51.0); HEMOGLOBIN 7.7 g/dL (13.6-17.8); IMMATURE GRANULOCYTES 2.2 %; IMMATURE GRANULOCYTES ABSOLUTE 0.29 10/3/uL (0.0-0.11); LYMPHOCYTES 25.6 %; LYMPHOCYTES ABSOLUTE 3.39 10/3/uL (0.67-4.30); MEAN CORPUS HGB CONC 34.7 g/dL (32.0-36.0); MEAN CORPUSCULAR HEMOGLOB 29.6 pg (26.0-34.0); MEAN PLATELET VOLUME 9.9 fL (9.2-13.0); MONOCYTES 10.7 %; MONOCYTES ABSOLUTE 1.42 10/3/uL (0.21-1.20); NEUTROPHILS ABSOLUTE 8.07 10/3/uL (2.02-8.40); PLATELET COUNT 166 10/3/uL (150-400); RBC DISTRIBUTION WIDTH 14.4 % (12.0-16.0); WHITE BLOOD CELLS 13.2 10/3/uL (4.5-10.5)
[2016-10-23 17:32] LABS: MANUAL DIFF NO %; MEAN CORPUSCULAR VOLUME 85.4 fL (80-100)
[2016-10-23 17:56] LABS: PARTIAL THROMBO TIME > 150.0 SEC (22.5-37.2)
[2016-10-24 03:54] LABS: MEAN PLATELET VOLUME 9.4 fL (9.2-13.0); PLATELET COUNT 148 10/3/uL (150-400); RBC DISTRIBUTION WIDTH 14.6 % (12.0-16.0); WHITE BLOOD CELLS 11.2 10/3/uL (4.5-10.5)
[2016-10-24 04:03] LABS: HEMOGLOBIN 6.9 g/dL (13.6-17.8)
[2016-10-24 04:04] LABS: HEMATOCRIT 20.3 % (40.0-51.0); MANUAL DIFF YES %; MEAN CORPUSCULAR VOLUME 88.3 fL (80-100)
[2016-10-24 04:13] LABS: CALCIUM, SERUM 7.2 MG/DL (8.5-10.4); CHLORIDE, SERUM 103 MMOL/L (96-112); CO2 (CARBON DIOXIDE) 28 MMOL/L (24-34); CREATININE 1.09 MG/DL (0.70-1.30); GFR AFRICAN AMERICAN 84 ML/MIN (>=60); GFR NON AFRICAN AMERICAN 73 ML/MIN (>=60); GLUCOSE, SERUM 113 MG/DL (60-99); POTASSIUM, SERUM 3.8 MMOL/L (3.5-5.3); SODIUM, SERUM 137 MMOL/L (135-148)
[2016-10-24 04:14] LABS: BUN (BLOOD UREA NITROGEN) 13 MG/DL (6-23)
[2016-10-24 04:25] LABS: BAND NEUTROPHILS 2 %; IMMATURE GRANS ABSOLUTE (CALC) 0.34 10/3/uL (0.0-0.11); LYMPHOCYTES 18 %; LYMPHOCYTES ABSOLUTE (CALC) 2.02 10/3/uL (0.67-4.30); METAMYELOCYTES 3 %; MONOCYTES 8 %; NEUTROPHILS ABSOLUTE (CALC) 7.95 10/3/uL (2.02-8.40); OVALOCYTES 1+ (3-10/OIF) (0-2/OIF); POIKILOCYTOSIS 1+ (5-10/OIF) (0-5/OIF); SEGMENTED NEUTROPHIL (0) 69 %; TEARDROP SHAPED RBCS FEW (3-10/OIF); TOTAL NUCLEATED CELLS 100
[2016-10-24 16:41] LABS: MEAN CORPUS HGB CONC 34.4 g/dL (32.0-36.0); MEAN CORPUSCULAR HEMOGLOB 30.4 pg (26.0-34.0); MEAN CORPUSCULAR VOLUME 88.4 fL (80-100); MEAN PLATELET VOLUME 9.5 fL (9.2-13.0); PLATELET COUNT 156 10/3/uL (150-400); RBC DISTRIBUTION WIDTH 14.5 % (12.0-16.0)
[2016-10-24 16:42] LABS: HEMATOCRIT 33.4 % (40.0-51.0); HEMOGLOBIN 11.5 g/dL (13.6-17.8); MANUAL DIFF YES %; RED CELL COUNT 3.78 10/6/uL (4.7-6.1); WHITE BLOOD CELLS 16.4 10/3/uL (4.5-10.5)
[2016-10-24 16:48] LABS: INTERNATIONAL NORMAL RATI 1.2 UNITS (-); PROTIME (NOT ORD) 14.8 SEC (12.0-14.5)
[2016-10-24 16:49] LABS: PARTIAL THROMBO TIME 93.8 SEC (22.5-37.2)
[2016-10-24 17:03] LABS: BAND NEUTROPHILS 4 %; BASOPHILS 1 %; BASOPHILS ABSOLUTE (CALC) 0.16 10/3/uL (0.0-0.16); IMMATURE GRANS ABSOLUTE (CALC) 0.33 10/3/uL (0.0-0.11); LYMPHOCYTES 43 %; LYMPHOCYTES ABSOLUTE (CALC) 7.05 10/3/uL (0.67-4.30); METAMYELOCYTES 2 %; MONOCYTES 4 %; MONOCYTES ABSOLUTE (CALC) 0.66 10/3/uL (0.21-1.20); PLATELET ESTIMATE ADQ (ADEQUATE); RBC MORPHOLOGY NORM (NORMAL); SEGMENTED NEUTROPHIL (0) 46 %; TOTAL NUCLEATED CELLS 100
[2016-10-24 18:56] LABS: BASOPHILS 0.5 %; BASOPHILS ABSOLUTE 0.05 10/3/uL (0.0-0.16); EOSINOPHILS 0.8 %; EOSINOPHILS ABSOLUTE 0.08 10/3/uL (0.0-0.53); HEMATOCRIT 31.2 % (40.0-51.0); IMMATURE GRANULOCYTES 1.7 %; IMMATURE GRANULOCYTES ABSOLUTE 0.17 10/3/uL (0.0-0.11); LYMPHOCYTES 23.9 %; LYMPHOCYTES ABSOLUTE 2.43 10/3/uL (0.67-4.30); MANUAL DIFF NO %; MEAN CORPUS HGB CONC 35.3 g/dL (32.0-36.0); MEAN CORPUSCULAR HEMOGLOB 30.6 pg (26.0-34.0); MEAN CORPUSCULAR VOLUME 86.9 fL (80-100); MEAN PLATELET VOLUME 9.4 fL (9.2-13.0); MONOCYTES ABSOLUTE 1.01 10/3/uL (0.21-1.20); NEUTROPHILS 63.1 %; NEUTROPHILS ABSOLUTE 6.41 10/3/uL (2.02-8.40); PLATELET COUNT 134 10/3/uL (150-400); RBC DISTRIBUTION WIDTH 14.2 % (12.0-16.0); RED CELL COUNT 3.59 10/6/uL (4.7-6.1); WHITE BLOOD CELLS 10.2 10/3/uL (4.5-10.5)
[2016-10-24 19:07] LABS: INTERNATIONAL NORMAL RATI 1.1 UNITS (-); PROTIME (NOT ORD) 14.3 SEC (12.0-14.5)
[2016-10-24 19:08] LABS: PARTIAL THROMBO TIME 35.9 SEC (22.5-37.2)
[2016-10-24 19:12] LABS: ALBUMIN 2.5 G/DL (3.5-5.0); BUN (BLOOD UREA NITROGEN) 10 MG/DL (6-23); CALCIUM, SERUM 7.7 MG/DL (8.5-10.4); CHLORIDE, SERUM 106 MMOL/L (96-112); CREATININE 0.97 MG/DL (0.70-1.30); GFR AFRICAN AMERICAN 97 ML/MIN (>=60); GFR NON AFRICAN AMERICAN 84 ML/MIN (>=60); GLOBULIN 2.4 G/DL (2.5-4.1); GLUCOSE, SERUM 108 MG/DL (60-99); SGOT(AST) 52 U/L (5-40); SGPT(ALT) 47 U/L (5-65); SODIUM, SERUM 139 MMOL/L (135-148); TOTAL BILIRUBIN 0.5 MG/DL (0-1.2); TOTAL PROTEIN 4.9 G/DL (6.0-8.5)
[2016-10-24 19:13] LABS: ALKALINE PHOSPHATASE 46 U/L (45-117); CO2 (CARBON DIOXIDE) 23 MMOL/L (24-34)
[2016-10-25 02:17] LABS: BASOPHILS 0.2 %; BASOPHILS ABSOLUTE 0.02 10/3/uL (0.0-0.16); EOSINOPHILS 0.8 %; EOSINOPHILS ABSOLUTE 0.07 10/3/uL (0.0-0.53); HEMOGLOBIN 9.3 g/dL (13.6-17.8); IMMATURE GRANULOCYTES 1.5 %; IMMATURE GRANULOCYTES ABSOLUTE 0.13 10/3/uL (0.0-0.11); LYMPHOCYTES 24.1 %; LYMPHOCYTES ABSOLUTE 2.15 10/3/uL (0.67-4.30); MEAN CORPUS HGB CONC 34.3 g/dL (32.0-36.0); MEAN CORPUSCULAR HEMOGLOB 29.7 pg (26.0-34.0); MEAN CORPUSCULAR VOLUME 86.6 fL (80-100); MEAN PLATELET VOLUME 8.9 fL (9.2-13.0); MONOCYTES 12.1 %; MONOCYTES ABSOLUTE 1.08 10/3/uL (0.21-1.20); NEUTROPHILS 61.3 %; NEUTROPHILS ABSOLUTE 5.48 10/3/uL (2.02-8.40); PLATELET COUNT 136 10/3/uL (150-400); RBC DISTRIBUTION WIDTH 14.6 % (12.0-16.0); RED CELL COUNT 3.13 10/6/uL (4.7-6.1); WHITE BLOOD CELLS 8.9 10/3/uL (4.5-10.5)
[2016-10-25 02:23] LABS: HEMATOCRIT 27.1 % (40.0-51.0); MANUAL DIFF NO %
[2016-10-25 02:29] LABS: BUN (BLOOD UREA NITROGEN) 9 MG/DL (6-23); CALCIUM, SERUM 7.3 MG/DL (8.5-10.4); CHLORIDE, SERUM 104 MMOL/L (96-112); CO2 (CARBON DIOXIDE) 25 MMOL/L (24-34); CREATININE 1.08 MG/DL (0.70-1.30); GFR AFRICAN AMERICAN 85 ML/MIN (>=60); GFR NON AFRICAN AMERICAN 74 ML/MIN (>=60); GLUCOSE, SERUM 116 MG/DL (60-99); POTASSIUM, SERUM 3.9 MMOL/L (3.5-5.3); SODIUM, SERUM 139 MMOL/L (135-148)
[2016-10-25 21:01] LABS: BASOPHILS 0.2 %; BASOPHILS ABSOLUTE 0.02 10/3/uL (0.0-0.16); EOSINOPHILS 1.4 %; EOSINOPHILS ABSOLUTE 0.12 10/3/uL (0.0-0.53); HEMATOCRIT 25.4 % (40.0-51.0); HEMOGLOBIN 8.7 g/dL (13.6-17.8); IMMATURE GRANULOCYTES 1.2 %; LYMPHOCYTES 17.2 %; LYMPHOCYTES ABSOLUTE 1.49 10/3/uL (0.67-4.30); MEAN CORPUS HGB CONC 34.3 g/dL (32.0-36.0); MEAN CORPUSCULAR HEMOGLOB 29.9 pg (26.0-34.0); MEAN CORPUSCULAR VOLUME 87.3 fL (80-100); MEAN PLATELET VOLUME 8.9 fL (9.2-13.0); MONOCYTES 13.5 %; MONOCYTES ABSOLUTE 1.17 10/3/uL (0.21-1.20); NEUTROPHILS 66.5 %; NEUTROPHILS ABSOLUTE 5.74 10/3/uL (2.02-8.40); PLATELET COUNT 166 10/3/uL (150-400); RBC DISTRIBUTION WIDTH 14.5 % (12.0-16.0); RED CELL COUNT 2.91 10/6/uL (4.7-6.1); WHITE BLOOD CELLS 8.6 10/3/uL (4.5-10.5)
[2016-10-25 21:03] LABS: MANUAL DIFF NO %
[2016-10-25 21:12] LABS: BUN (BLOOD UREA NITROGEN) 8 MG/DL (6-23); CALCIUM, SERUM 7.7 MG/DL (8.5-10.4); CHLORIDE, SERUM 103 MMOL/L (96-112); CO2 (CARBON DIOXIDE) 26 MMOL/L (24-34); CREATININE 0.96 MG/DL (0.70-1.30); GFR AFRICAN AMERICAN 98 ML/MIN (>=60); GFR NON AFRICAN AMERICAN 85 ML/MIN (>=60); GLUCOSE, SERUM 119 MG/DL (60-99); POTASSIUM, SERUM 3.4 MMOL/L (3.5-5.3); SODIUM, SERUM 138 MMOL/L (135-148)
[2016-10-25 23:36] LABS: HEMOGLOBIN 9.3 g/dL (13.6-17.8)
[2016-10-25 23:41] LABS: POTASSIUM, SERUM 3.6 MMOL/L (3.5-5.3)
[2016-10-26 03:41] LABS: BASOPHILS 0.3 %; BASOPHILS ABSOLUTE 0.03 10/3/uL (0.0-0.16); EOSINOPHILS 1.8 %; EOSINOPHILS ABSOLUTE 0.17 10/3/uL (0.0-0.53); HEMATOCRIT 28.5 % (40.0-51.0); HEMOGLOBIN 9.5 g/dL (13.6-17.8); IMMATURE GRANULOCYTES 1.2 %; IMMATURE GRANULOCYTES ABSOLUTE 0.11 10/3/uL (0.0-0.11); LYMPHOCYTES 19.9 %; LYMPHOCYTES ABSOLUTE 1.89 10/3/uL (0.67-4.30); MEAN CORPUS HGB CONC 33.3 g/dL (32.0-36.0); MEAN CORPUSCULAR HEMOGLOB 29.3 pg (26.0-34.0); MEAN PLATELET VOLUME 9.2 fL (9.2-13.0); MONOCYTES 14.3 %; MONOCYTES ABSOLUTE 1.36 10/3/uL (0.21-1.20); NEUTROPHILS 62.5 %; NEUTROPHILS ABSOLUTE 5.96 10/3/uL (2.02-8.40); PLATELET COUNT 177 10/3/uL (150-400); RBC DISTRIBUTION WIDTH 14.5 % (12.0-16.0); RED CELL COUNT 3.24 10/6/uL (4.7-6.1); WHITE BLOOD CELLS 9.5 10/3/uL (4.5-10.5)
[2016-10-26 03:42] LABS: MANUAL DIFF NO %
[2016-10-26 04:01] LABS: BUN (BLOOD UREA NITROGEN) 6 MG/DL (6-23); CALCIUM, SERUM 7.4 MG/DL (8.5-10.4); CHLORIDE, SERUM 103 MMOL/L (96-112); CO2 (CARBON DIOXIDE) 27 MMOL/L (24-34); CREATININE 0.89 MG/DL (0.70-1.30); GFR AFRICAN AMERICAN 107 ML/MIN (>=60); GFR NON AFRICAN AMERICAN 92 ML/MIN (>=60); GLUCOSE, SERUM 107 MG/DL (60-99); POTASSIUM, SERUM 3.8 MMOL/L (3.5-5.3); SODIUM, SERUM 139 MMOL/L (135-148)
[2016-10-26 15:20] LABS: BUN (BLOOD UREA NITROGEN) 5 MG/DL (6-23); CALCIUM, SERUM 7.8 MG/DL (8.5-10.4); CHLORIDE, SERUM 102 MMOL/L (96-112); CO2 (CARBON DIOXIDE) 26 MMOL/L (24-34); GFR AFRICAN AMERICAN 112 ML/MIN (>=60); GFR NON AFRICAN AMERICAN 96 ML/MIN (>=60); GLUCOSE, SERUM 124 MG/DL (60-99); POTASSIUM, SERUM 3.7 MMOL/L (3.5-5.3); SODIUM, SERUM 137 MMOL/L (135-148)
[2016-10-27 03:38] LABS: BASOPHILS 0.3 %; BASOPHILS ABSOLUTE 0.03 10/3/uL (0.0-0.16); EOSINOPHILS 1.5 %; EOSINOPHILS ABSOLUTE 0.17 10/3/uL (0.0-0.53); HEMATOCRIT 26.1 % (40.0-51.0); HEMOGLOBIN 8.9 g/dL (13.6-17.8); IMMATURE GRANULOCYTES ABSOLUTE 0.11 10/3/uL (0.0-0.11); LYMPHOCYTES 15.4 %; MEAN CORPUS HGB CONC 34.1 g/dL (32.0-36.0); MEAN CORPUSCULAR HEMOGLOB 30.8 pg (26.0-34.0); MEAN CORPUSCULAR VOLUME 90.3 fL (80-100); MEAN PLATELET VOLUME 8.9 fL (9.2-13.0); MONOCYTES 14.7 %; MONOCYTES ABSOLUTE 1.62 10/3/uL (0.21-1.20); NEUTROPHILS 67.1 %; NEUTROPHILS ABSOLUTE 7.39 10/3/uL (2.02-8.40); PLATELET COUNT 203 10/3/uL (150-400); RBC DISTRIBUTION WIDTH 14.6 % (12.0-16.0); RED CELL COUNT 2.89 10/6/uL (4.7-6.1)
[2016-10-27 03:39] LABS: MANUAL DIFF NO %
[2016-10-27 03:50] LABS: BUN (BLOOD UREA NITROGEN) 5 MG/DL (6-23); CHLORIDE, SERUM 100 MMOL/L (96-112); CO2 (CARBON DIOXIDE) 26 MMOL/L (24-34); CREATININE 0.85 MG/DL (0.70-1.30); GFR AFRICAN AMERICAN 109 ML/MIN (>=60); GFR NON AFRICAN AMERICAN 94 ML/MIN (>=60); GLUCOSE, SERUM 121 MG/DL (60-99); POTASSIUM, SERUM 3.9 MMOL/L (3.5-5.3); SODIUM, SERUM 135 MMOL/L (135-148)
[2016-10-28 04:45] LABS: BASOPHILS 0.3 %; BASOPHILS ABSOLUTE 0.03 10/3/uL (0.0-0.16); EOSINOPHILS 1.8 %; EOSINOPHILS ABSOLUTE 0.17 10/3/uL (0.0-0.53); HEMATOCRIT 25.1 % (40.0-51.0); HEMOGLOBIN 8.4 g/dL (13.6-17.8); IMMATURE GRANULOCYTES 1.2 %; IMMATURE GRANULOCYTES ABSOLUTE 0.11 10/3/uL (0.0-0.11); LYMPHOCYTES 14.9 %; LYMPHOCYTES ABSOLUTE 1.41 10/3/uL (0.67-4.30); MEAN CORPUS HGB CONC 33.5 g/dL (32.0-36.0); MEAN CORPUSCULAR HEMOGLOB 30.7 pg (26.0-34.0); MEAN CORPUSCULAR VOLUME 91.6 fL (80-100); MEAN PLATELET VOLUME 9.1 fL (9.2-13.0); MONOCYTES 15.3 %; MONOCYTES ABSOLUTE 1.45 10/3/uL (0.21-1.20); NEUTROPHILS 66.5 %; NEUTROPHILS ABSOLUTE 6.31 10/3/uL (2.02-8.40); PLATELET COUNT 238 10/3/uL (150-400); RBC DISTRIBUTION WIDTH 14.3 % (12.0-16.0); RED CELL COUNT 2.74 10/6/uL (4.7-6.1); WHITE BLOOD CELLS 9.5 10/3/uL (4.5-10.5)
[2016-10-28 04:49] LABS: MANUAL DIFF NO %
[2016-10-28 04:59] LABS: BUN (BLOOD UREA NITROGEN) 8 MG/DL (6-23); CALCIUM, SERUM 8.3 MG/DL (8.5-10.4); CHLORIDE, SERUM 101 MMOL/L (96-112); CO2 (CARBON DIOXIDE) 25 MMOL/L (24-34); CREATININE 0.87 MG/DL (0.70-1.30); GFR AFRICAN AMERICAN 108 ML/MIN (>=60); GFR NON AFRICAN AMERICAN 93 ML/MIN (>=60); GLUCOSE, SERUM 105 MG/DL (60-99); POTASSIUM, SERUM 4.1 MMOL/L (3.5-5.3); SGOT(AST) 108 U/L (5-40); SGPT(ALT) 54 U/L (5-65); SODIUM, SERUM 136 MMOL/L (135-148); TOTAL BILIRUBIN 0.9 MG/DL (0-1.2); TOTAL PROTEIN 5.6 G/DL (6.0-8.5)
[2016-10-28 05:01] LABS: A/G RATIO 0.5 (0.7-1.9); ALBUMIN 1.9 G/DL (3.5-5.0); ALKALINE PHOSPHATASE 59 U/L (45-117); GLOBULIN 3.7 G/DL (2.5-4.1)
[2016-10-30 06:16] LABS: BASOPHILS 0.4 %; BASOPHILS ABSOLUTE 0.03 10/3/uL (0.0-0.16); EOSINOPHILS 2.4 %; EOSINOPHILS ABSOLUTE 0.18 10/3/uL (0.0-0.53); HEMATOCRIT 23.8 % (40.0-51.0); HEMOGLOBIN 7.9 g/dL (13.6-17.8); IMMATURE GRANULOCYTES 0.7 %; IMMATURE GRANULOCYTES ABSOLUTE 0.05 10/3/uL (0.0-0.11); INTERNATIONAL NORMAL RATI 1.2 UNITS (-); LYMPHOCYTES 20.3 %; MANUAL DIFF NO %; MEAN CORPUS HGB CONC 33.2 g/dL (32.0-36.0); MEAN CORPUSCULAR HEMOGLOB 29.9 pg (26.0-34.0); MEAN CORPUSCULAR VOLUME 90.2 fL (80-100); MEAN PLATELET VOLUME 8.7 fL (9.2-13.0); MONOCYTES 12.3 %; MONOCYTES ABSOLUTE 0.91 10/3/uL (0.21-1.20); NEUTROPHILS 63.9 %; NEUTROPHILS ABSOLUTE 4.72 10/3/uL (2.02-8.40); PLATELET COUNT 315 10/3/uL (150-400); PROTIME (NOT ORD) 15.2 SEC (12.0-14.5); RBC DISTRIBUTION WIDTH 14.1 % (12.0-16.0); RED CELL COUNT 2.64 10/6/uL (4.7-6.1); WHITE BLOOD CELLS 7.4 10/3/uL (4.5-10.5)
[2016-10-30 06:19] LABS: PARTIAL THROMBO TIME 147.8 SEC (22.5-37.2)
[2016-10-30 06:25] LABS: BUN (BLOOD UREA NITROGEN) 7 MG/DL (6-23); CALCIUM, SERUM 8.1 MG/DL (8.5-10.4); CHLORIDE, SERUM 100 MMOL/L (96-112); CO2 (CARBON DIOXIDE) 26 MMOL/L (24-34); CREATININE 0.78 MG/DL (0.70-1.30); GFR AFRICAN AMERICAN 113 ML/MIN (>=60); GFR NON AFRICAN AMERICAN 97 ML/MIN (>=60); POTASSIUM, SERUM 4.1 MMOL/L (3.5-5.3); SODIUM, SERUM 135 MMOL/L (135-148)
[2016-10-30 06:26] LABS: GLUCOSE, SERUM 127 MG/DL (60-99)
[2016-10-31 06:32] LABS: BASOPHILS 0.5 %; BASOPHILS ABSOLUTE 0.04 10/3/uL (0.0-0.16); EOSINOPHILS 1.8 %; EOSINOPHILS ABSOLUTE 0.15 10/3/uL (0.0-0.53); HEMATOCRIT 24.5 % (40.0-51.0); HEMOGLOBIN 8.2 g/dL (13.6-17.8); IMMATURE GRANULOCYTES ABSOLUTE 0.08 10/3/uL (0.0-0.11); INTERNATIONAL NORMAL RATI 1.2 UNITS (-); LYMPHOCYTES 15.2 %; LYMPHOCYTES ABSOLUTE 1.27 10/3/uL (0.67-4.30); MEAN CORPUS HGB CONC 33.5 g/dL (32.0-36.0); MEAN CORPUSCULAR HEMOGLOB 29.5 pg (26.0-34.0); MEAN CORPUSCULAR VOLUME 88.1 fL (80-100); MEAN PLATELET VOLUME 8.7 fL (9.2-13.0); MONOCYTES 13.2 %; NEUTROPHILS 68.3 %; NEUTROPHILS ABSOLUTE 5.72 10/3/uL (2.02-8.40); PLATELET COUNT 404 10/3/uL (150-400); PROTIME (NOT ORD) 15.4 SEC (12.0-14.5); RBC DISTRIBUTION WIDTH 14.5 % (12.0-16.0); RED CELL COUNT 2.78 10/6/uL (4.7-6.1); WHITE BLOOD CELLS 8.4 10/3/uL (4.5-10.5)
[2016-10-31 06:41] LABS: MANUAL DIFF NO %
[2016-11-01 06:07] LABS: BASOPHILS 0.3 %; BASOPHILS ABSOLUTE 0.03 10/3/uL (0.0-0.16); EOSINOPHILS 1.3 %; EOSINOPHILS ABSOLUTE 0.11 10/3/uL (0.0-0.53); HEMATOCRIT 26.7 % (40.0-51.0); HEMOGLOBIN 8.7 g/dL (13.6-17.8); IMMATURE GRANULOCYTES ABSOLUTE 0.17 10/3/uL (0.0-0.11); LYMPHOCYTES 14.6 %; LYMPHOCYTES ABSOLUTE 1.26 10/3/uL (0.67-4.30); MEAN CORPUS HGB CONC 32.6 g/dL (32.0-36.0); MEAN CORPUSCULAR HEMOGLOB 29.6 pg (26.0-34.0); MEAN PLATELET VOLUME 8.6 fL (9.2-13.0); MONOCYTES 12.2 %; MONOCYTES ABSOLUTE 1.05 10/3/uL (0.21-1.20); NEUTROPHILS 69.6 %; NEUTROPHILS ABSOLUTE 6.02 10/3/uL (2.02-8.40); PLATELET COUNT 470 10/3/uL (150-400); RBC DISTRIBUTION WIDTH 14.1 % (12.0-16.0); RED CELL COUNT 2.94 10/6/uL (4.7-6.1); WHITE BLOOD CELLS 8.6 10/3/uL (4.5-10.5)
[2016-11-01 06:10] LABS: MANUAL DIFF NO %; MEAN CORPUSCULAR VOLUME 90.8 fL (80-100)
[2016-11-01 06:23] LABS: INTERNATIONAL NORMAL RATI 1.3 UNITS (-); PROTIME (NOT ORD) 15.9 SEC (12.0-14.5)
[2016-11-02 06:10] LABS: BASOPHILS 0.2 %; BASOPHILS ABSOLUTE 0.02 10/3/uL (0.0-0.16); EOSINOPHILS 0.2 %; EOSINOPHILS ABSOLUTE 0.02 10/3/uL (0.0-0.53); HEMOGLOBIN 8.6 g/dL (13.6-17.8); IMMATURE GRANULOCYTES 1.8 %; IMMATURE GRANULOCYTES ABSOLUTE 0.22 10/3/uL (0.0-0.11); INTERNATIONAL NORMAL RATI 1.1 UNITS (-); LYMPHOCYTES 12.3 %; MEAN CORPUS HGB CONC 31.9 g/dL (32.0-36.0); MEAN CORPUSCULAR HEMOGLOB 28.7 pg (26.0-34.0); MEAN PLATELET VOLUME 8.9 fL (9.2-13.0); MONOCYTES 7.8 %; MONOCYTES ABSOLUTE 0.95 10/3/uL (0.21-1.20); NEUTROPHILS 77.7 %; NEUTROPHILS ABSOLUTE 9.46 10/3/uL (2.02-8.40); PLATELET COUNT 468 10/3/uL (150-400); PROTIME (NOT ORD) 14.1 SEC (12.0-14.5); RBC DISTRIBUTION WIDTH 14.4 % (12.0-16.0)
[2016-11-02 06:13] LABS: MANUAL DIFF NO %; WHITE BLOOD CELLS 12.2 10/3/uL (4.5-10.5)
[2016-11-02 06:17] LABS: BUN (BLOOD UREA NITROGEN) 12 MG/DL (6-23); CALCIUM, SERUM 8.3 MG/DL (8.5-10.4); CHLORIDE, SERUM 102 MMOL/L (96-112); CO2 (CARBON DIOXIDE) 24 MMOL/L (24-34); GFR AFRICAN AMERICAN 106 ML/MIN (>=60); GFR NON AFRICAN AMERICAN 92 ML/MIN (>=60); GLUCOSE, SERUM 140 MG/DL (60-99); POTASSIUM, SERUM 4.6 MMOL/L (3.5-5.3); SODIUM, SERUM 136 MMOL/L (135-148)
[2016-11-03 07:48] LABS: HEMATOCRIT 27.9 % (40.0-51.0); HEMOGLOBIN 8.9 g/dL (13.6-17.8); MEAN CORPUS HGB CONC 31.9 g/dL (32.0-36.0); MEAN CORPUSCULAR HEMOGLOB 29.6 pg (26.0-34.0); MEAN CORPUSCULAR VOLUME 92.7 fL (80-100); MEAN PLATELET VOLUME 8.7 fL (9.2-13.0); PLATELET COUNT 602 10/3/uL (150-400); RBC DISTRIBUTION WIDTH 14.3 % (12.0-16.0); RED CELL COUNT 3.01 10/6/uL (4.7-6.1); WHITE BLOOD CELLS 8.6 10/3/uL (4.5-10.5)
[2016-11-03 07:50] LABS: MANUAL DIFF YES %
[2016-11-03 08:52] LABS: BAND NEUTROPHILS 14 %; BASOPHILS 1 %; BASOPHILS ABSOLUTE (CALC) 0.09 10/3/uL (0.0-0.16); EOSINOPHILS 1 %; EOSINOPHILS ABSOLUTE (CALC) 0.09 10/3/uL (0.0-0.53); IMMATURE GRANS ABSOLUTE (CALC) 0.43 10/3/uL (0.0-0.11); LYMPHOCYTES 29 %; LYMPHOCYTES ABSOLUTE (CALC) 2.49 10/3/uL (0.67-4.30); METAMYELOCYTES 3 %; MONOCYTES 4 %; MONOCYTES ABSOLUTE (CALC) 0.34 10/3/uL (0.21-1.20); MYELOCYTES 2 %; NEUTROPHILS ABSOLUTE (CALC) 5.16 10/3/uL (2.02-8.40); PLATELET ESTIMATE SLT INC (ADEQUATE); SEGMENTED NEUTROPHIL (0) 46 %; TOTAL NUCLEATED CELLS 100
[2016-11-03 08:53] LABS: RBC MORPHOLOGY NORM (NORMAL); TOXIC GRANULATION SLT
[2016-11-03 09:13] LABS: INTERNATIONAL NORMAL RATI 1.1 UNITS (-); PROTIME (NOT ORD) 14.2 SEC (12.0-14.5)
[2016-11-04 05:38] LABS: HEMATOCRIT 27.5 % (40.0-51.0); HEMOGLOBIN 8.7 g/dL (13.6-17.8); MEAN CORPUS HGB CONC 31.6 g/dL (32.0-36.0); MEAN CORPUSCULAR HEMOGLOB 28.4 pg (26.0-34.0); MEAN PLATELET VOLUME 8.5 fL (9.2-13.0); PLATELET COUNT 592 10/3/uL (150-400); RBC DISTRIBUTION WIDTH 14.5 % (12.0-16.0); RED CELL COUNT 3.06 10/6/uL (4.7-6.1); WHITE BLOOD CELLS 8.3 10/3/uL (4.5-10.5)
[2016-11-04 05:40] LABS: MEAN CORPUSCULAR VOLUME 89.9 fL (80-100)
[2016-11-04 05:41] LABS: MANUAL DIFF YES %
[2016-11-04 05:52] LABS: BUN (BLOOD UREA NITROGEN) 14 MG/DL (6-23); CALCIUM, SERUM 8.6 MG/DL (8.5-10.4); CHLORIDE, SERUM 102 MMOL/L (96-112); CO2 (CARBON DIOXIDE) 26 MMOL/L (24-34); CREATININE 0.92 MG/DL (0.70-1.30); GFR AFRICAN AMERICAN 104 ML/MIN (>=60); GFR NON AFRICAN AMERICAN 89 ML/MIN (>=60); POTASSIUM, SERUM 4.2 MMOL/L (3.5-5.3); SODIUM, SERUM 137 MMOL/L (135-148)
[2016-11-04 05:53] LABS: GLUCOSE, SERUM 96 MG/DL (60-99)
[2016-11-04 06:02] LABS: INTERNATIONAL NORMAL RATI 1.2 UNITS (-); PROTIME (NOT ORD) 14.8 SEC (12.0-14.5)
[2016-11-04 06:40] LABS: BAND NEUTROPHILS 8 %; BASOPHILS 1 %; BASOPHILS ABSOLUTE (CALC) 0.08 10/3/uL (0.0-0.16); EOSINOPHILS 1 %; EOSINOPHILS ABSOLUTE (CALC) 0.08 10/3/uL (0.0-0.53); IMMATURE GRANS ABSOLUTE (CALC) 0.42 10/3/uL (0.0-0.11); LYMPHOCYTES 14 %; LYMPHOCYTES ABSOLUTE (CALC) 1.16 10/3/uL (0.67-4.30); METAMYELOCYTES 4 %; MONOCYTES 5 %; MONOCYTES ABSOLUTE (CALC) 0.42 10/3/uL (0.21-1.20); MYELOCYTES 1 %; NEUTROPHILS ABSOLUTE (CALC) 6.14 10/3/uL (2.02-8.40); SEGMENTED NEUTROPHIL (0) 66 %; TOTAL NUCLEATED CELLS 100
[2016-11-04 06:41] LABS: PLATELET ESTIMATE INC (ADEQUATE); RBC MORPHOLOGY NORM (NORMAL)
[2016-11-05 10:30] LABS: BASOPHILS 0.3 %; BASOPHILS ABSOLUTE 0.03 10/3/uL (0.0-0.16); EOSINOPHILS 0.6 %; EOSINOPHILS ABSOLUTE 0.06 10/3/uL (0.0-0.53); HEMATOCRIT 27.5 % (40.0-51.0); HEMOGLOBIN 8.9 g/dL (13.6-17.8); IMMATURE GRANULOCYTES 1.7 %; IMMATURE GRANULOCYTES ABSOLUTE 0.17 10/3/uL (0.0-0.11); LYMPHOCYTES 18.4 %; MEAN CORPUS HGB CONC 32.4 g/dL (32.0-36.0); MEAN CORPUSCULAR HEMOGLOB 29.1 pg (26.0-34.0); MEAN CORPUSCULAR VOLUME 89.9 fL (80-100); MEAN PLATELET VOLUME 8.6 fL (9.2-13.0); MONOCYTES 6.8 %; MONOCYTES ABSOLUTE 0.66 10/3/uL (0.21-1.20); NEUTROPHILS 72.2 %; NEUTROPHILS ABSOLUTE 7.04 10/3/uL (2.02-8.40); PLATELET COUNT 629 10/3/uL (150-400); RBC DISTRIBUTION WIDTH 14.7 % (12.0-16.0); RED CELL COUNT 3.06 10/6/uL (4.7-6.1); WHITE BLOOD CELLS 9.8 10/3/uL (4.5-10.5)
[2016-11-05 10:31] LABS: MANUAL DIFF NO %
[2016-11-05 10:37] LABS: INTERNATIONAL NORMAL RATI 1.2 UNITS (-); PROTIME (NOT ORD) 15.3 SEC (12.0-14.5)
[2016-11-06 05:59] LABS: BASOPHILS 0.5 %; BASOPHILS ABSOLUTE 0.04 10/3/uL (0.0-0.16); EOSINOPHILS 1.3 %; EOSINOPHILS ABSOLUTE 0.11 10/3/uL (0.0-0.53); HEMATOCRIT 27.8 % (40.0-51.0); HEMOGLOBIN 8.9 g/dL (13.6-17.8); IMMATURE GRANULOCYTES 2.5 %; IMMATURE GRANULOCYTES ABSOLUTE 0.22 10/3/uL (0.0-0.11); LYMPHOCYTES 32.6 %; LYMPHOCYTES ABSOLUTE 2.86 10/3/uL (0.67-4.30); MEAN CORPUSCULAR HEMOGLOB 29.7 pg (26.0-34.0); MEAN PLATELET VOLUME 8.6 fL (9.2-13.0); MONOCYTES 4.8 %; MONOCYTES ABSOLUTE 0.42 10/3/uL (0.21-1.20); NEUTROPHILS 58.3 %; NEUTROPHILS ABSOLUTE 5.13 10/3/uL (2.02-8.40); PLATELET COUNT 550 10/3/uL (150-400); RBC DISTRIBUTION WIDTH 14.9 % (12.0-16.0); WHITE BLOOD CELLS 8.8 10/3/uL (4.5-10.5)
[2016-11-06 06:00] LABS: MANUAL DIFF NO %; MEAN CORPUSCULAR VOLUME 92.7 fL (80-100)
[2016-11-06 06:01] LABS: INTERNATIONAL NORMAL RATI 1.1 UNITS (-); PROTIME (NOT ORD) 14.4 SEC (12.0-14.5)
[2016-11-07 07:57] LABS: BASOPHILS ABSOLUTE 0.08 10/3/uL (0.0-0.16); EOSINOPHILS 2.5 %; EOSINOPHILS ABSOLUTE 0.21 10/3/uL (0.0-0.53); HEMOGLOBIN 9.8 g/dL (13.6-17.8); IMMATURE GRANULOCYTES 4.6 %; IMMATURE GRANULOCYTES ABSOLUTE 0.38 10/3/uL (0.0-0.11); LYMPHOCYTES 24.3 %; LYMPHOCYTES ABSOLUTE 2.01 10/3/uL (0.67-4.30); MEAN CORPUS HGB CONC 31.8 g/dL (32.0-36.0); MEAN CORPUSCULAR HEMOGLOB 29.6 pg (26.0-34.0); MEAN CORPUSCULAR VOLUME 93.1 fL (80-100); MEAN PLATELET VOLUME 8.5 fL (9.2-13.0); MONOCYTES ABSOLUTE 0.58 10/3/uL (0.21-1.20); NEUTROPHILS 60.6 %; NEUTROPHILS ABSOLUTE 5.01 10/3/uL (2.02-8.40); PLATELET COUNT 621 10/3/uL (150-400); RBC DISTRIBUTION WIDTH 14.6 % (12.0-16.0); RED CELL COUNT 3.31 10/6/uL (4.7-6.1); WHITE BLOOD CELLS 8.3 10/3/uL (4.5-10.5)
[2016-11-07 08:02] LABS: HEMATOCRIT 30.8 % (40.0-51.0); MANUAL DIFF NO %
[2016-11-07 08:08] LABS: INTERNATIONAL NORMAL RATI 1.2 UNITS (-); PROTIME (NOT ORD) 15.3 SEC (12.0-14.5)
[2016-12-16] MEDS ORDERED: LIPITOR10 PO (15:44)
[2016-12-16] MEDS ORDERED: NEUR400 PO (15:46)
[2016-12-16] MEDS ORDERED: CYMBALTA30 PO (15:46)
[2016-12-16] MEDS ORDERED: NEUR600 PO (15:47)
[2016-12-16] MEDS ORDERED: CORDARONE PO (15:48)
[2016-12-16] MEDS ORDERED: LOP25 PO ×2 (15:49→15:51)
[2016-12-16] MEDS ORDERED: DITRO5 PO (15:52)
[2016-12-16] MEDS ORDERED: FLOMAX4 PO (15:53)
[2016-12-16] MEDS ORDERED: VIAGRA100 MG PO (15:56)
[2016-12-16] MEDS ORDERED: LOVENOX80 SC (16:38)
[2016-12-16] MEDS ORDERED: PCET PO (16:39)
== END 2016-11-07 17:42 | DRG 271 ==
LOC: ER 21:41 → SDC/OF 10-21 00:56 → CVICU 10-21 01:47 → 2SO 10-30 13:13
PROVIDERS: Emergency Medicine; Nurse Practitioner; Surgery; Surgery Vascular Surgery
PROC: 0KNT0ZZ Release Left Lower Leg Muscle, Open Approach (ICD-10-PCS; 2016-10-21)
PROC: B41G1ZZ Fluoroscopy of Left Lower Extremity Arteries using Low Osmolar Contrast (ICD-10-PCS; 2016-10-21)
PROC: 04CL3ZZ Extirpation of Matter from Left Femoral Artery, Percutaneous Approach (ICD-10-PCS; principal; 2016-10-21 06:45)
PROC: 06HY33Z Insertion of Infusion Device into Lower Vein, Percutaneous Approach (ICD-10-PCS; 2016-10-21 06:45)
PROC: 041N09Q Bypass Left Popliteal Artery to Lower Extremity Artery with Autologous Venous Tissue, Open Approach (ICD-10-PCS; 2016-10-21 06:45)
PROC: B54CZZA Ultrasonography of Left Lower Extremity Veins, Guidance (ICD-10-PCS; 2016-10-21 06:45)
PROC: 3E03317 Introduction of Other Thrombolytic into Peripheral Vein, Percutaneous Approach (ICD-10-PCS; 2016-10-21 06:45)
PROC: 04CL3ZZ Extirpation of Matter from Left Femoral Artery, Percutaneous Approach (ICD-10-PCS; 2016-10-21 06:45)
PROC: 06BQ0ZZ Excision of Left Saphenous Vein, Open Approach (ICD-10-PCS; 2016-10-21 06:45)
PROC: 047L3DZ Dilation of Left Femoral Artery with Intraluminal Device, Percutaneous Approach (ICD-10-PCS; 2016-10-21 06:45)
PROC: 04CL3ZZ Extirpation of Matter from Left Femoral Artery, Percutaneous Approach (ICD-10-PCS; 2016-10-23)
PROC: 04CN3ZZ Extirpation of Matter from Left Popliteal Artery, Percutaneous Approach (ICD-10-PCS; 2016-10-23)
PROC: B41G1ZZ Fluoroscopy of Left Lower Extremity Arteries using Low Osmolar Contrast (ICD-10-PCS; 2016-10-23)
PROC: 3E03317 Introduction of Other Thrombolytic into Peripheral Vein, Percutaneous Approach (ICD-10-PCS; 2016-10-23)
PROC: 30233N1 Transfusion of Nonautologous Red Blood Cells into Peripheral Vein, Percutaneous Approach (ICD-10-PCS; 2016-10-23)
PROC: 041L0AL Bypass Left Femoral Artery to Popliteal Artery with Autologous Arterial Tissue, Open Approach (ICD-10-PCS; 2016-10-24)
PROC: 3E03317 Introduction of Other Thrombolytic into Peripheral Vein, Percutaneous Approach (ICD-10-PCS; 2016-10-24)
PROC: 0KBT0ZZ Excision of Left Lower Leg Muscle, Open Approach (ICD-10-PCS; 2016-11-01)
PROC: 0KQT0ZZ Repair Left Lower Leg Muscle, Open Approach (ICD-10-PCS; 2016-11-04)
DX: I74.3 Embolism and thrombosis of arteries of the lower extremities (principal); I75.022 Atheroembolism of left lower extremity; M79.A22 Nontraumatic compartment syndrome of left lower extremity; I10 Essential (primary) hypertension; J44.9 Chronic obstructive pulmonary disease, unspecified; E78.5 Hyperlipidemia, unspecified; I48.0 Paroxysmal atrial fibrillation; F17.210 Nicotine dependence, cigarettes, uncomplicated; D64.9 Anemia, unspecified; Z79.01 Long term (current) use of anticoagulants; Z88.1 Allergy status to other antibiotic agents
CPT/HCPCS: 27602; 36245; 36247; 36415; 37184; 37185; 37211; 37214; 37226; 71010; 75625; 75710; 75716; 80048; 80053; 82330; 82803; 82947; 83735; 83874; 84132; 84295; 84484; 85014; 85018; 85025; 85610; 85730; 86850; 86900; 86901; 86920; 87641; 93005; 94640; 96374; 96375; 97110-GP; 97116-GP; 97162-GP; 97164-GP; 97530-GP; 99285; A9270-GY; C1725; C1750; C1757; C1760; C1769; C1876; C1887; C1894; C8929; J0282; J0330; J0360; J0690; J1170; J2250; J2370; J2405; J2710; J2997; J3010; J3411; P9016; P9045; Q9957; Q9967

== ENCOUNTER 2016-12-17 13:05 | Day surgery (SDC) | payer OTHER ==
--- NOTE | ~2016-12-17 | OP ---
Record Of Operation [facility] [address] [place]. [address] NAME: FREDA COBB : 55 STATUS : REG [facility] PAT#: [id number] AGE: 61 ADM/REG DATE : 12/17/16 MR#: [id number] REPORT SERV DATE: 12/17/16 DICTATED BY: JOSE MOLINA DATE: 12/17/16 REPORT STATUS : Draft TRANSCRIBED BY: MODL DATE: 12/17/16 DATE OF PROCEDURE: 12/17/2016 PREOPERATIVE DIAGNOSIS: Status post emergent femoral to popliteal to distal tibioperoneal bypass with threatened extremity and postoperative findings of reduced blood flow through the graft in threatened graft thrombosis with distal run off, stenosis of the anterior tibial, tibioperoneal trunk. POSTOPERATIVE DIAGNOSES: 1. Stenosis of the origin of the anterior tibial, the upper tibial vessel as well as the peroneal. 2. Stenosis of the distal femoral to distal popliteal vein graft. SURGERY PERFORMED: 1. Left lower extremity arteriogram. 2. Atherectomy and CONSTRUCTION REP of the left anterior tibial artery, proximal and also upper mid calf. 3. Balloon angioplasty of the peroneal artery. 4. Stenting of the distal femoral popliteal graft using a 6 x 60 self-expanding stent. SURGEON: Jose Molina M.D. DESCRIPTION OF PROCEDURE: The patient was placed under IV sedation. The left leg had undergone a recent limb salvage procedure by having a femoral to distal tibioperoneal trunk bypass, also fasciotomies. It was noted preoperatively to have reduced flow on the graft with a high-grade stenosis at the distal portion and threatened to occlude the graft. He was placed under IV sedation. Right femoral artery cannulated with ultrasound direction. Needle, wire, and sheath were placed. UF catheter manipulated up and over the bifurcation. Angiogram done on the left lower extremity showing that the common femoral profunda was open. The SFA was opened partially and then the vein graft very very slowly filled. As the matter of fact, I did not see it fill distally on the initial run. A 6, 45 sheath placed up and over the bifurcation. The graft was cannulated. A 0.035 wire and then a trailblazer placed into the graft down distally. Films done showing very sluggish flow through the graft. There was an area just at the knee where the graft appeared to have reduced flow and then the outflow was through the anterior tibial where there was stenosis at the very proximal portion. Peroneal was also opened, but showed the area of stenosis approximately 4 to 6 cm distal to the origin. With this finding, the anterior tibial was cannulated. He was given 4000 units of heparin. Using the thinkingphones atherectomy device, the anterior tibial proximally was atherectomized as well as this area 4 to 5 cm distal. This was then ballooned with a 3 balloon and a final film showing better flow. There was some spasm where nitroglycerin was injected into the vessel. This was improved. The wire was then repositioned into the peritoneal. The peroneal and two of its branches were both ballooned with the same 3 balloon. After this was completed, repeat film showing the peroneal showed much better blood flow. The initial film again showing an area just as the vein graft came around the knee that there was an area of poor flow through the graft. It was hard to see exactly what the issue was. This did somewhat improve with just a balloon angioplasty of 6, Record Of Operation [address] [place]. [address] NAME: FREDA COBB : 55 STATUS : REG [facility] PAT#: [id number] AGE: 61 ADM/REG DATE : 12/17/16 MR#: [id number] REPORT SERV DATE: 12/17/16 DICTATED BY: JOSE MOLINA DATE: 12/17/16 REPORT STATUS : Draft TRANSCRIBED BY: MODL DATE: 12/17/16 4, but there was still an abnormality present. Because of that finding, a 6 x 60 self- expanding stent placed across this area and deployed. Repeat film now showing good flow through the graft with no abnormalities or residual stenotic areas. With this finding, the sheath was pulled back up and around the right side. A ProGlide closure was used which worked effectively and then a dry dressing was applied. ESTIMATED BLOOD LOSS: 30 mL. MG/MODL Jose Molina M.D. / [id number] CC: Jose Molina M.D.
[~2016-12-17 13:05] MED LIST changes: +CORDARONE PO; +CYMBALTA30 PO; +DITRO5 PO; +FLOMAX4 PO; +HCTZ PO; +LIPITOR10 PO; +LISINOPRIL PO; +LOP25 PO; +LOVENOX80 SC; +NEUR400 PO; +NEUR600 PO; +ZESTRIL40 MG PO
[2016-12-17 13:56] LABS: BASOPHILS 2.9 %; BASOPHILS ABSOLUTE 0.16 10/3/uL (0.0-0.16); EOSINOPHILS 8.7 %; EOSINOPHILS ABSOLUTE 0.48 10/3/uL (0.0-0.53); HEMATOCRIT 42.5 % (40.0-51.0); HEMOGLOBIN 13.8 g/dL (13.6-17.8); IMMATURE GRANULOCYTES 0.4 %; IMMATURE GRANULOCYTES ABSOLUTE 0.02 10/3/uL (0.0-0.11); LYMPHOCYTES 35.8 %; LYMPHOCYTES ABSOLUTE 1.97 10/3/uL (0.67-4.30); MANUAL DIFF NO %; MEAN CORPUS HGB CONC 32.5 g/dL (32.0-36.0); MEAN CORPUSCULAR HEMOGLOB 28.3 pg (26.0-34.0); MEAN CORPUSCULAR VOLUME 87.3 fL (80-100); MONOCYTES 8.9 %; MONOCYTES ABSOLUTE 0.49 10/3/uL (0.21-1.20); NEUTROPHILS 43.3 %; NEUTROPHILS ABSOLUTE 2.38 10/3/uL (2.02-8.40); PLATELET COUNT 369 10/3/uL (150-400); RBC DISTRIBUTION WIDTH 13.9 % (12.0-16.0); RED CELL COUNT 4.87 10/6/uL (4.7-6.1); WHITE BLOOD CELLS 5.5 10/3/uL (4.5-10.5)
[2016-12-17 14:01] LABS: CALCIUM, SERUM 9.1 MG/DL (8.5-10.4); CHLORIDE, SERUM 102 MMOL/L (96-112); CREATININE 0.99 MG/DL (0.70-1.30); GFR AFRICAN AMERICAN 95 ML/MIN (>=60); GFR NON AFRICAN AMERICAN 82 ML/MIN (>=60); GLUCOSE, SERUM 85 MG/DL (60-99); POTASSIUM, SERUM 4.4 MMOL/L (3.5-5.3); SODIUM, SERUM 139 MMOL/L (135-148)
[2016-12-17 14:02] LABS: BUN (BLOOD UREA NITROGEN) 9 MG/DL (6-23); CO2 (CARBON DIOXIDE) 30 MMOL/L (24-34)
== END 2016-12-18 03:02 | disposition home or self-care (01) ==
LOC: SDC 13:05 → SSU1 17:54
PROVIDERS: Surgery Vascular Surgery
DX: I70.219 Atherosclerosis of native arteries of extremities with intermittent claudication, unspecified extremity (principal); I10 Essential (primary) hypertension; K21.9 Gastro-esophageal reflux disease without esophagitis; E78.5 Hyperlipidemia, unspecified; I73.9 Peripheral vascular disease, unspecified; F17.210 Nicotine dependence, cigarettes, uncomplicated; J44.9 Chronic obstructive pulmonary disease, unspecified; Z98.890 Other specified postprocedural states; Z88.1 Allergy status to other antibiotic agents
CPT/HCPCS: 37226; 37229; 37232; 75710; 80048; 85025; 93005; A9270-GY; C1725; C1760; C1769; C1876; C1887; C1894; J0690; J2250; J3010; Q9966

== ENCOUNTER 2017-01-02 10:04 | Emergency (ER) | payer OTHER ==
[2017-01-02 08:13] LABS: BASOPHILS 0.5 %; BASOPHILS ABSOLUTE 0.04 10/3/uL (0.0-0.16); EOSINOPHILS 1.9 %; EOSINOPHILS ABSOLUTE 0.15 10/3/uL (0.0-0.53); HEMATOCRIT 39.9 % (40.0-51.0); IMMATURE GRANULOCYTES 0.5 %; IMMATURE GRANULOCYTES ABSOLUTE 0.04 10/3/uL (0.0-0.11); LYMPHOCYTES 24.8 %; LYMPHOCYTES ABSOLUTE 1.97 10/3/uL (0.67-4.30); MEAN CORPUS HGB CONC 32.6 g/dL (32.0-36.0); MEAN CORPUSCULAR HEMOGLOB 27.9 pg (26.0-34.0); MEAN CORPUSCULAR VOLUME 85.6 fL (80-100); MEAN PLATELET VOLUME 9.1 fL (9.2-13.0); MONOCYTES 7.4 %; MONOCYTES ABSOLUTE 0.59 10/3/uL (0.21-1.20); NEUTROPHILS 64.9 %; NEUTROPHILS ABSOLUTE 5.16 10/3/uL (2.02-8.40); RBC DISTRIBUTION WIDTH 13.8 % (12.0-16.0); RED CELL COUNT 4.66 10/6/uL (4.7-6.1)
[2017-01-02 08:15] LABS: ER CBC TAT 0 Hrs 11 Mins; MANUAL DIFF NO %; PLATELET COUNT 256 10/3/uL (150-400)
[2017-01-02 08:19] LABS: INTERNATIONAL NORMAL RATI 1.1 UNITS (-); PROTIME (NOT ORD) 13.6 SEC (12.0-14.5)
[2017-01-02 08:20] LABS: PARTIAL THROMBO TIME 41.1 SEC (22.5-37.2)
[2017-01-02 08:26] LABS: BUN (BLOOD UREA NITROGEN) 10 MG/DL (6-23); CALCIUM, SERUM 9.4 MG/DL (8.5-10.4); CHLORIDE, SERUM 103 MMOL/L (96-112); CO2 (CARBON DIOXIDE) 30 MMOL/L (24-34); CREATININE 0.98 MG/DL (0.70-1.30); GFR AFRICAN AMERICAN 96 ML/MIN (>=60); GFR NON AFRICAN AMERICAN 83 ML/MIN (>=60); GLUCOSE, SERUM 97 MG/DL (60-99); POTASSIUM, SERUM 3.9 MMOL/L (3.5-5.3); SODIUM, SERUM 138 MMOL/L (135-148)
== END 2017-01-02 10:15 | disposition home or self-care (01) ==
LOC: ER 10:04
PROVIDERS: Emergency Medicine
DX: M79.605 Pain in left leg (principal); R20.2 Paresthesia of skin; I10 Essential (primary) hypertension; I48.91 Unspecified atrial fibrillation; Z88.1 Allergy status to other antibiotic agents; Z79.899 Other long term (current) drug therapy
CPT/HCPCS: 80048; 85025; 85610; 85730; 93926; 99284

== ENCOUNTER 2017-01-27 23:29 | Inpatient (IN) | payer OTHER ==
--- NOTE | ~2017-01-27 | DS ---
Discharge Summary [place] [address] [facility] [place]. [address] NAME: FREDA COBB : 55 STATUS : DIS IN PAT#: [id number] AGE: 61 ADM/REG DATE : 01/28/17 MR#: [id number] REPORT SERV DATE: 01/31/17 DICTATED BY: TOMAS ELIZABETH DATE: 01/29/17 REPORT STATUS : Draft TRANSCRIBED BY: MODL DATE: 01/29/17 ADMISSION DATE: 01/28/2017 DISCHARGE DATE: 01/29/2017 DISCHARGE DIAGNOSES: 1. Acute hypoxemic respiratory failure. 2. Bibasilar air-space disease, more prominent on the left on CT imaging. 3. Borderline likely reactive adenopathy in the mediastinum and enma. 4. Acute exacerbation of chronic obstructive pulmonary disease. 5. Peripheral arterial disease, status post multiple surgical and catheter interventions with history of compartment syndrome and fasciotomy, now on chronic Lovenox. 6. Chronic anemia. 7. Paroxysmal atrial fibrillation with normal left ventricular function with recent echocardiography. 8. History of nonsustained ventricular tachycardia. 9. Hyperlipidemia. 10.Hypertension. 11.Gastroesophageal reflux disease. 12.Posttraumatic stress disorder. 13.Glaucoma. 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 15.Neuropathy. OPERATIONS AND PROCEDURES: None. HISTORY OF PRESENT ILLNESS: This is a 61-year-old white male, who was triaged in the emergency room on 01/27/2017 at 2148 hours with a chief complaint of possible pneumonia. Admission vital signs, blood pressure 132/63, temperature 98.3, pulse 92, respirations 20, O2 saturation 84% on room air and then 91% on 3 L. After evaluation in the emergency room, his diagnoses were pneumonia and COPD exacerbation. He was referred to the Hospitalist Service for admission. He was seen by Dr. Domenico Saxena and admitted as described on admission history and physical examination. Notable additional history included a 2-day history of increasing shortness of breath with a nonproductive cough, chills, and a documented temperature of 102. ADDITIONAL HISTORY: Per Dr. Saxena. PHYSICAL EXAMINATION: Per Dr. Saxena. ADMISSION LABORATORY: Per Dr. Saxena. HOSPITAL COURSE: He was admitted by Dr. Saxena with 1. Hypoxic respiratory failure. Discharge Summary [place] [address] [facility] [place]. [address] NAME: FREDA COBB : 55 STATUS : DIS IN PAT#: [id number] AGE: 61 ADM/REG DATE : 01/28/17 MR#: [id number] REPORT SERV DATE: 01/31/17 DICTATED BY: TOMAS ELIZABETH DATE: 01/29/17 REPORT STATUS : Draft TRANSCRIBED BY: MODRashmi DATE: 01/29/17 2. Pulmonary infiltrates. 3. COPD exacerbation. 4. Symptomatic peripheral arterial disease. On admission, cultures were obtained. Broad-spectrum antimicrobial therapy was instituted for community-acquired pneumonia. Pulmonary consultation was obtained. He was given bronchodilators and Solu-Medrol. His hospitalist care was assumed by the undersigned. He was seen at approximately 1100 hours on 01/28/2017 and 1345 hours on 01/29/2017. With the above-mentioned therapy, there was rapid resolution of his dyspnea. He did develop more cough and sputum production while hospitalized with the above-mentioned therapy. By 01/29/2017, his room air saturation had increased to 96%. Significant data obtained on admission pertinent to his presentation included a procalcitonin x2 that was less than 0.05. However, C-reactive protein was elevated at 159. A troponin was less than 0.02 and a B-natriuretic peptide was 67.7. A lactate level was 1.6. A white count prior to steroid administration was 8.3. Strep pneumococcal antigen was negative. Legionella urinary antigen was negative. Sputum obtained was not cultured per laboratory criteria. Blood cultures were no growth at [address] scan of the chest was done with findings as noted above. He was seen in consultation by Pulmonary, Dr. Avina. Dr. Avina felt the differential diagnoses at this point included cryptogenic organizing pneumonia, occult ischemia, occult aspiration, bilateral community- acquired pneumonia with left lower lobe predominance and amiodarone reaction. Bronchoscopy was discussed as a potential option for further diagnosis. The patient declined this. He wanted to be discharged. Indicated he had significantly reduced his tobacco use and agreed to outpatient pulmonary followup with a followup CT scan. By 01/29/2017, it was felt he had achieved a level of improvement and stability where he could be safely discharged home. He has an appointment with [facility] Vascular Surgery on 02/04/2017. He has an appointment to see his manufacturing support engineer, Dr. Fracne in 03/2017. He will follow up with the Pulmonary group in a month with followup CT and pulmonary function test. An appointment was made for him to see his [facility] physician, Dr. Motley within the next 7 to 10 days. He will continue his home diet and activity. DISCHARGE MEDICATIONS: 1. Lipitor 10 mg daily. 2. Vitamin D 1000 units daily. 3. Cosopt ophthalmic one drop twice daily, both eyes. 4. Cymbalta 30 mg daily. 5. Lovenox 80 mg subcu twice daily. 6. Xalatan one drop, both eyes daily. Discharge Summary [place] [address] [facility] [place]. [address] NAME: FREDA COBB : 55 STATUS : DIS IN PAT#: [id number] AGE: 61 ADM/REG DATE : 01/28/17 MR#: [id number] REPORT SERV DATE: 01/31/17 DICTATED BY: TOMAS ELIZABETH DATE: 01/29/17 REPORT STATUS : Draft TRANSCRIBED BY: FREDDY DATE: 01/29/17 7. Metoprolol 12.5 mg q.a.m., reduced from 25 mg q.a.m. because of periods of bradycardia. 8. Ditropan 5 mg daily. 9. Spiriva one cap inhaled daily. 10.Trazodone 50 mg at bedtime. 11.ProAir two puffs every 4 hours. 12.Amiodarone 100 mg daily. 13.Gabapentin 800 mg three times daily. 14.Percocet 5/325 every 6 hours as needed. 15.Viagra 100 mg daily as needed. 16.Centrum tablets 1 daily. 17.Ceftin 500 mg twice daily for seven days. 18.Zithromax 500 mg daily for two days. 19.Prednisone, tapering course, 40 mg for two days, 30 for two days, 20 for two days, 10 for two days. Discharge time greater than 30 minutes. DICTATED BY: Tomas Elizabeth M.D. DD/FREDDY Tomas Elizabeth M.D. / [id number] CC: Isac Brothers M.D. Michael Greer, M.D. Pamela Sud, M.D. Donald Robinson, M.D.
--- NOTE | ~2017-01-27 | CN ---
Consultation Report [facility] [address] [place]. [address] NAME: FREDA CERDA : 55 STATUS : DIS IN PAT#: [id number] AGE: 61 ADM/REG DATE : 01/28/17 MR#: [id number] REPORT SERV DATE: 01/29/17 DICTATED BY: YANNA HERRING DATE: 01/29/17 REPORT STATUS : Draft TRANSCRIBED BY: MODL DATE: 01/29/17 CONSULTATION DATE OF CONSULTATION: Dear Dr. Al Elizabeth and Dr. Saxena: Thank you for requesting my opinion regarding evaluation and management of Mr. Freda Cerda's bilateral infiltrates, and shortness of breath. Mr. Cerda is a pleasant 61-year old gentleman with a significant past medical history of COPD, heavy tobacco abuse, post traumatic stress disorder, peripheral artery disease, on chronic subcutaneous Lovenox doses, hyperlipidemia, and hypertension, who presents to [facility] with a history of two to four days of shortness of breath well localized to the chest, nonradiating with no significant alleviating or exacerbating factors. The patient has dyspnea on exertion, nonproductive cough, subjective fevers, and chills with a measured temperature of up to 102. The patient state that over the past day and a half, he has had significant improvement in his breathing. He states that, he is now close to baseline. He does have persistent productive cough which essentially he feels better. He denies any current fevers, nausea, vomiting, diarrhea, or constipation. He denies any chest pain, orthopnea, or bilateral lower leg swelling. REVIEW OF SYSTEMS: A detailed 14-point review of systems was completed. The patient also reports leg issues from severe peripheral vascular disease including soreness and minor chronic wound issues. PAST MEDICAL HISTORY: 1. COPD. 2. Atrial fibrillation. 3. Hyperlipidemia. 4. Hypertension. 5. GERD. 6. Posttraumatic stress disorder. 7. Peripheral arterial disease, on chronic Lovenox. PAST SURGICAL HISTORY: 1. Multiple surgical interventions for peripheral arterial disease of lower extremities. 2. Compartment syndrome with fasciotomy. 3. Cholecystectomy. 4. Left eye implantation. ALLERGIES: PENICILLIN AND CATS. HOME MEDICATIONS: Reviewed and located in the paper chart. FAMILY HISTORY: Adopted, but brother has atrial fibrillation. Daughter twenty seven Consultation Report [facility] [address] [place]. [address] NAME: FREDA CERDA : 55 STATUS : DIS IN PAT#: [id number] AGE: 61 ADM/REG DATE : 01/28/17 MR#: [id number] REPORT SERV DATE: 01/29/17 DICTATED BY: YANNA HERRING DATE: 01/29/17 REPORT STATUS : Draft TRANSCRIBED BY: MODL DATE: 01/29/17 years ago under tragic circumstances as per written report. SOCIAL HISTORY: The patient lives in [place], [place]. He smokes and drinks approximately six to twelve beers per day. He smoked approximately a pack per day for almost forty years. 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 He states that he has three children who are living. PHYSICAL EXAMINATION: VITAL SIGNS: Afebrile, T-current of 97.5, pulse of 52, respiratory rate 18, room air 97%, blood pressure 179/84. GENERAL: No acute distress. HEENT: Normocephalic, atraumatic. Pupils are equal, round, and reactive to light and accommodation. Posterior oropharynx is clear. NECK: No JVD. No LAD. Trachea midline. CARDIOVASCULAR: Regular rate and rhythm. S1 and S2 present. LUNGS: Coarse bilateral lower breath sounds, otherwise clear to auscultation bilaterally. ABDOMEN: Nontender, nondistended. Soft. Positive bowel sounds. EXTREMITIES: No clubbing, cyanosis. Superficial wounds are noted with a bandage over the top. I did not inspect underneath the bandage. NEUROLOGIC: 5/5 strength in upper and lower extremities. Cranial nerves II through XII intact. Gait not tested. DTRs not performed. LABORATORY DATA: White count of 13 up from 7, hemoglobin of 12.6, platelet count of 292. Negative procalcitonin x2. ABG of 7.45, PaCO2 of 33, PaO2 of 65 while on room air. IMAGIN. Chest CT with contrast on 01/28/2017 demonstrates bibasilar airspace disease more prominent on the left. Findings are consistent with pneumonia or aspiration. 2. Borderline reactive adenopathy throughout the mediastinum and enma. 3. COPD. This chest CT was personally reviewed by me and I agree with the above interpretation. ASSESSMENT AND PLAN: Mr. Freda Cerda is an extremely pleasant 61-year-old gentleman with a significant past medical history of alcohol use, tobacco abuse, chronic obstructive pulmonary disease, and severe peripheral vascular disease, who presents to [facility] with several days of worsening shortness of breath and productive cough. The patient states that, his shortness of breath have significantly improved while on ceftriaxone and azithromycin IV. The patient does have continued productive cough. The patient's bilateral airspace disease is confounding especially with a new presentation of a normal white count, no left shift, and negative procalcitonin. The patient did have an elevated CRP level which was nonspecific, but was 159. The patient also had a negative urine Legionella antigen. At this point, the differential diagnosis is quite broad, but it could include cryptogenic Consultation Report [facility] [id number] [place]. [address] NAME: FREDA CERDA : 55 STATUS : DIS IN PAT#: [id number] AGE: 61 ADM/REG DATE : 01/28/17 MR#: [id number] REPORT SERV DATE: 01/29/17 DICTATED BY: YANNA HERRING DATE: 01/29/17 REPORT STATUS : Draft TRANSCRIBED BY: FREDDY DATE: 01/29/17 organizing pneumonia, occult ischemia, occult aspiration, bilateral community-acquired pneumonia with left lower lobar predominance, amiodarone reaction, although this does not necessarily radiographically fit. I did discuss in detail potential options for the patient including bronchoscopy to better elucidate the underlying cause of his CT abnormalities or continued empiric therapy with followup in our Pulmonary Clinic. After careful discussion of these issues, we agreed to proceed with continued observation. A summary of my recommendations are as follows: 1. Spiriva and albuterol. 2. The patient has already quit smoking back in August. 3. Follow up in our outpatient [facility] with full pulmonary function tests and repeat chest x-ray. The patient will likely need another repeat CT scan at some point. 4. The patient also qualifies for CT screening. 5. The patient voiced understanding of the importance of followup and understands that it is 100% his responsibility. 6. I am slightly worried about whether or not he will follow up given his insistence on trying to be discharged today with an incomplete workup. 7. Nonetheless, I discussed these issues with Dr. Al Elizabeth. We will continue ceftriaxone and azithromycin as inpatient. On discharge, he can either be transitioned to p.o. Levaquin or continue ceftriaxone and azithromycin, a total of seven days of ceftriaxone and five days of azithromycin. 8. The patient declined bronchoscopy. Thank you for allowing me to participate in Freda Cerda's care. CHANTELLE/FREDDY Yanna Herring M.D. / [id number] CC: Al Elizabeth M.D.
--- NOTE | ~2017-01-27 | HP ---
History And Physical [address] [place]. [address] NAME: FREDA COBB : 55 STATUS : ADM IN [facility]#: [id number] AGE: 61 ADM/REG DATE : 01/28/17 MR#: [id number] REPORT SERV DATE: 01/28/17 DICTATED BY: CHRISTOPH HUTCHINSON DATE: 01/28/17 REPORT STATUS : Draft TRANSCRIBED BY: MODRashmi DATE: 01/28/17 DATE OF ADMISSION: 01/28/2017 CHIEF COMPLAINT: A 61-year-old male presenting with increasing shortness of breath and fever. HISTORY OF PRESENTING ILLNESS: The patient's history was obtained through careful interview with the patient, coupled with review of [facility] medical records. For about two days now, the patient has had increasing shortness of breath characterized by dyspnea on exertion, a nonproductive cough, and subjective fevers and chills with a measured temperature this evening up to 102.0. He describes lightheadedness and states simply "I feel like crap." He has no chest pain, no headache, no sore throat. He has some sinus discomfort, a fullness quality, 4/10 severity with recent sinus drainage. No abdominal pain. No nausea or vomiting. No diarrhea. REVIEW OF SYSTEMS: Otherwise, a 14-point review of systems was obtained and was negative. PAST MEDICAL HISTORY: 1. COPD. 2. Atrial fibrillation. 3. Elevated cholesterol. 4. Hypertension. 5. Gastroesophageal reflux disorder. 6. Posttraumatic stress disorder. 7. Peripheral arterial disease, on chronic Lovenox, followed by Dr. Batista. PAST SURGICAL HISTORY: 1. Multiple surgical interventions for peripheral arterial disease of lower extremities. 2. Compartment syndrome with fasciotomy. 3. Cholecystectomy. 4. Left eye implant. ALLERGIES: PENICILLIN AND CATS. FAMILY HISTORY: Is . Lives in [place], [place]. He smokes cigarettes. Drinks beer, sometimes six to twelve beers a day. He is a of the [employer]. 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 Has three children who are living. FAMILY HISTORY: Adopted, but brother has atrial fibrillation. A daughter at 27 years of age in some kind of tragic circumstance. History And Physical [address] [address] NAME: FREDA COBB : 55 STATUS : ADM IN PAT#: [id number] AGE: 61 ADM/REG DATE : 01/28/17 MR#: [id number] REPORT SERV DATE: 01/28/17 DICTATED BY: CHRISTOPH HUTCHINSON DATE: 01/28/17 REPORT STATUS : Draft TRANSCRIBED BY: FREDDY DATE: 01/28/17 CURRENT MEDICATIONS: Unknown at this time, but we have requested pharmacy to pursue a medication list. PHYSICAL EXAMINATION: VITAL SIGNS: Temperature 98.2, pulse 93, blood pressure 132/63, respiratory rate 20, O2 saturation 84% on room air and 91% on 3 L nasal cannula. GENERAL: An ill-appearing male, diaphoretic, and short of breath. HEENT: Pupils equal, round, and reactive to light. No conjunctival pallor. No scleral icterus. Nares are patent. Oropharynx is clear of obstruction. Moist mucous membranes. NECK: Trachea midline. No thyromegaly. LYMPH: No cervical lymphadenopathy. No supraclavicular lymphadenopathy. RESPIRATORY: The patient has definite rhonchi and harsh lung sounds at the base of his lungs bilaterally and symmetrically. I do not appreciate focal egophony on exam. He has scattered expiratory wheezes, but they are not too severe, but he does have a labored respiratory effort with prolonged expiratory phase. CARDIOVASCULAR: Regular rate and rhythm. No murmurs, rubs, or gallops. No extremity edema is appreciated. ABDOMEN: Soft, nontender, nondistended. Normal bowel sounds auscultated throughout. No hepatosplenomegaly. DERMATOLOGICAL: Diaphoretic. Warm extremities. No pallor. No cyanosis. PSYCHIATRIC: Normal affect. Good mood. Alert and oriented x3. LABORATORY DATA: ABG demonstrates a pH of 7.45, a PaCO2 of 33, a PaO2 of 65, and a bicarb of 22. White blood count 8.3, hemoglobin 12, hematocrit 40, platelets 241. Sodium 138, potassium 3.6, chloride 106, bicarb 26, BUN 11, creatinine 0.2, glucose 123. Procalcitonin negative. Lactic acid 1.6. Liver enzymes within normal limits. STUDIES: 1. Chest x-ray by my own evaluation shows bibasilar disease when I compared to 10/2016, question whether this could be an interstitial lung disease process such as fibrosis? 2. EKG by my own evaluation shows sinus rhythm. ASSESSMENT AND PLAN: 1. Hypoxic respiratory failure. Provide supportive care. 2. Pulmonary infiltrates. Again at this time, the patient has negative procalcitonin, negative cough production, and negative white blood cell count. The patient was given antibiotics in the emergency department, but I will hold these for now. Check blood cultures, check a CT scan of the chest today, and consult Pulmonary. May even need to consider bronchoscopy? 3. Chronic obstructive pulmonary disease exacerbation. Place on IV Solu-Medrol, duo nebulizers, doxycycline. 4. Symptomatic peripheral arterial disease. Consult Dr. Batista, vascular surgeon. Continue Lovenox. History And Physical [facility] [address] [place]. [address] NAME: FREDA COBB : 55 STATUS : ADM IN [facility]#: [id number] AGE: 61 ADM/REG DATE : 01/28/17 MR#: [id number] REPORT SERV DATE: 01/28/17 DICTATED BY: CHRISTOPH HUTCHINSON DATE: 01/28/17 REPORT STATUS : Draft TRANSCRIBED BY: FREDDY DATE: 01/28/17 KPL/FREDDY Christoph Hutchinson M.D. / [id number] CC: MD Sony Clemente M.D.
[2017-01-27 22:27] LABS: BASOPHILS 0.2 %; BASOPHILS ABSOLUTE 0.02 10/3/uL (0.0-0.16); EOSINOPHILS 1.6 %; EOSINOPHILS ABSOLUTE 0.13 10/3/uL (0.0-0.53); ER CBC TAT 0 Hrs 08 Mins; HEMATOCRIT 40.1 % (40.0-51.0); HEMOGLOBIN 12.9 g/dL (13.6-17.8); IMMATURE GRANULOCYTES 1.3 %; IMMATURE GRANULOCYTES ABSOLUTE 0.11 10/3/uL (0.0-0.11); LYMPHOCYTES 11.9 %; LYMPHOCYTES ABSOLUTE 0.98 10/3/uL (0.67-4.30); MANUAL DIFF NO %; MEAN CORPUS HGB CONC 32.2 g/dL (32.0-36.0); MEAN CORPUSCULAR HEMOGLOB 27.4 pg (26.0-34.0); MEAN CORPUSCULAR VOLUME 85.3 fL (80-100); MONOCYTES 9.8 %; MONOCYTES ABSOLUTE 0.81 10/3/uL (0.21-1.20); NEUTROPHILS 75.2 %; NEUTROPHILS ABSOLUTE 6.22 10/3/uL (2.02-8.40); PLATELET COUNT 241 10/3/uL (150-400); RBC DISTRIBUTION WIDTH 14.1 % (12.0-16.0); WHITE BLOOD CELLS 8.3 10/3/uL (4.5-10.5)
[2017-01-27 22:44] LABS: A/G RATIO 0.8 (0.7-1.9); ALKALINE PHOSPHATASE 82 U/L (45-117); BUN (BLOOD UREA NITROGEN) 11 MG/DL (6-23); CHLORIDE, SERUM 106 MMOL/L (96-112); CO2 (CARBON DIOXIDE) 26 MMOL/L (24-34); GFR AFRICAN AMERICAN 75 ML/MIN (>=60); GFR NON AFRICAN AMERICAN 65 ML/MIN (>=60); GLOBULIN 3.9 G/DL (2.5-4.1); POTASSIUM, SERUM 3.6 MMOL/L (3.5-5.3); SGOT(AST) 17 U/L (5-40); SGPT(ALT) 25 U/L (5-65); SODIUM, SERUM 138 MMOL/L (135-148); TOTAL BILIRUBIN 0.5 MG/DL (0-1.2); TOTAL PROTEIN 6.9 G/DL (6.0-8.5)
[2017-01-27 22:52] LABS: GLUCOSE, SERUM 123 MG/DL (60-99)
[2017-01-27 23:35] LABS: BE (BASE EXCESS) -1.1 MEQ/L (0 +/- 2.5); HCO3 (ACTUAL BICARBONATE) 22.1 MEQ/L (23-27); INSTRUMENT SERIAL # 8087; PCO2 (CO2 TENSION) 33 MMHG (35-45); PO2 (O2 TENSION) 65 MMHG (79-93); SAMPLE Arterial; pH 7.45 (7.37-7.43)
[2017-01-28] MEDS ORDERED: *UNABLE1 (01:19)
[2017-01-28] MEDS ORDERED: LOVENOX80 SC ×2 (01:22→11:27)
[2017-01-28 06:05] LABS: BASOPHILS 0.1 %; BASOPHILS ABSOLUTE 0.01 10/3/uL (0.0-0.16); EOSINOPHILS 0 %; HEMATOCRIT 38.5 % (40.0-51.0); HEMOGLOBIN 12.3 g/dL (13.6-17.8); IMMATURE GRANULOCYTES ABSOLUTE 0.08 10/3/uL (0.0-0.11); LYMPHOCYTES 4.5 %; LYMPHOCYTES ABSOLUTE 0.35 10/3/uL (0.67-4.30); MANUAL DIFF NO %; MEAN CORPUS HGB CONC 31.9 g/dL (32.0-36.0); MEAN CORPUSCULAR HEMOGLOB 27.2 pg (26.0-34.0); MEAN PLATELET VOLUME 9.2 fL (9.2-13.0); MONOCYTES 1.4 %; MONOCYTES ABSOLUTE 0.11 10/3/uL (0.21-1.20); NEUTROPHILS ABSOLUTE 7.19 10/3/uL (2.02-8.40); PLATELET COUNT 234 10/3/uL (150-400); RBC DISTRIBUTION WIDTH 14.1 % (12.0-16.0); RED CELL COUNT 4.53 10/6/uL (4.7-6.1); WHITE BLOOD CELLS 7.7 10/3/uL (4.5-10.5)
[2017-01-28 06:09] LABS: INTERNATIONAL NORMAL RATI 1.2 UNITS (-); PARTIAL THROMBO TIME 41.1 SEC (22.5-37.2); PROTIME (NOT ORD) 15.5 SEC (12.0-14.5)
[2017-01-28 06:28] LABS: A/G RATIO 0.7 (0.7-1.9); ALBUMIN 2.8 G/DL (3.5-5.0); ALKALINE PHOSPHATASE 75 U/L (45-117); BUN (BLOOD UREA NITROGEN) 10 MG/DL (6-23); CALCIUM, SERUM 8.6 MG/DL (8.5-10.4); CHLORIDE, SERUM 109 MMOL/L (96-112); CO2 (CARBON DIOXIDE) 19 MMOL/L (24-34); CREATININE 1.16 MG/DL (0.70-1.30); GFR AFRICAN AMERICAN 78 ML/MIN (>=60); GFR NON AFRICAN AMERICAN 68 ML/MIN (>=60); GLOBULIN 4.1 G/DL (2.5-4.1); GLUCOSE, SERUM 245 MG/DL (60-99); PHOSPHORUS, SERUM 2.8 MG/DL (2.5-4.5); POTASSIUM, SERUM 3.7 MMOL/L (3.5-5.3); SGOT(AST) 14 U/L (5-40); SGPT(ALT) 23 U/L (5-65); SODIUM, SERUM 139 MMOL/L (135-148); TOTAL BILIRUBIN 0.2 MG/DL (0-1.2); TOTAL PROTEIN 6.9 G/DL (6.0-8.5); TROPONIN I <0.02 NG/ML (<0.05)
[2017-01-28 06:45] LABS: PROCALCITONIN <0.05 ng/mL (<0.5)
[2017-01-28] MEDS ORDERED: PACERONE100 MG PO (11:21)
[2017-01-28] MEDS ORDERED: DITRO5 PO (11:22)
[2017-01-28] MEDS ORDERED: LOP25 PO (11:22)
[2017-01-28] MEDS ORDERED: CYMBALTA30 PO (11:22)
[2017-01-28] MEDS ORDERED: NEUR800 PO (11:23)
[2017-01-28] MEDS ORDERED: PCET PO (11:23)
[2017-01-28] MEDS ORDERED: VITAMIN D1000 UNI1 PO (11:23)
[2017-01-28] MEDS ORDERED: PROAIR HFA INH (11:27)
[2017-01-28] MEDS ORDERED: LIPITOR10 PO (11:27)
[2017-01-28] MEDS ORDERED: COSOPT OPH (11:28)
[2017-01-28] MEDS ORDERED: SPIRIVA INH (11:28)
[2017-01-28] MEDS ORDERED: VIAGRA100 MG PO (11:28)
[2017-01-28] MEDS ORDERED: TRAZ50 PO (11:28)
[2017-01-28] MEDS ORDERED: XALAT OPH (11:29)
[2017-01-28] MEDS ORDERED: CENTRUM PO (11:30)
[2017-01-29 10:48] LABS: BASOPHILS 0.1 %; BASOPHILS ABSOLUTE 0.01 10/3/uL (0.0-0.16); EOSINOPHILS 0 %; HEMATOCRIT 39.9 % (40.0-51.0); HEMOGLOBIN 12.6 g/dL (13.6-17.8); IMMATURE GRANULOCYTES 1.3 %; IMMATURE GRANULOCYTES ABSOLUTE 0.17 10/3/uL (0.0-0.11); LYMPHOCYTES 9.4 %; LYMPHOCYTES ABSOLUTE 1.26 10/3/uL (0.67-4.30); MEAN CORPUS HGB CONC 31.6 g/dL (32.0-36.0); MEAN CORPUSCULAR HEMOGLOB 27.2 pg (26.0-34.0); MEAN CORPUSCULAR VOLUME 86.2 fL (80-100); MEAN PLATELET VOLUME 9.5 fL (9.2-13.0); MONOCYTES 5.7 %; MONOCYTES ABSOLUTE 0.76 10/3/uL (0.21-1.20); NEUTROPHILS 83.5 %; NEUTROPHILS ABSOLUTE 11.23 10/3/uL (2.02-8.40); PLATELET COUNT 292 10/3/uL (150-400); RBC DISTRIBUTION WIDTH 14.1 % (12.0-16.0); RED CELL COUNT 4.63 10/6/uL (4.7-6.1)
[2017-01-29 10:50] LABS: MANUAL DIFF NO %; WHITE BLOOD CELLS 13.4 10/3/uL (4.5-10.5)
[2017-01-29 11:02] LABS: BUN (BLOOD UREA NITROGEN) 11 MG/DL (6-23); CALCIUM, SERUM 9.4 MG/DL (8.5-10.4); CHLORIDE, SERUM 108 MMOL/L (96-112); CO2 (CARBON DIOXIDE) 27 MMOL/L (24-34); CREATININE 0.97 MG/DL (0.70-1.30); GFR AFRICAN AMERICAN 97 ML/MIN (>=60); GFR NON AFRICAN AMERICAN 84 ML/MIN (>=60); GLUCOSE, SERUM 114 MG/DL (60-99); POTASSIUM, SERUM 4.4 MMOL/L (3.5-5.3); SODIUM, SERUM 141 MMOL/L (135-148)
[2017-01-29] MEDS ORDERED: CEFT5 PO (15:59)
[2017-01-29] MEDS ORDERED: ZITHROMAX500 MG PO (16:00)
[2017-01-29] MEDS ORDERED: P20 PO (16:01)
== END 2017-01-29 16:58 | disposition home or self-care (01) | DRG 189 ==
LOC: ER 23:29 → 6NO 01-28 01:16
PROVIDERS: Emergency Medicine; Internal Medicine; Nurse Practitioner Acute Care
DX: J96.01 Acute respiratory failure with hypoxia (principal); I47.2 Ventricular tachycardia; G62.9 Polyneuropathy, unspecified; J44.0 Chronic obstructive pulmonary disease with (acute) lower respiratory infection; I10 Essential (primary) hypertension; I48.0 Paroxysmal atrial fibrillation; J44.1 Chronic obstructive pulmonary disease with (acute) exacerbation; F43.10 Post-traumatic stress disorder, unspecified; I73.89 Other specified peripheral vascular diseases; E78.5 Hyperlipidemia, unspecified; D64.9 Anemia, unspecified; F17.210 Nicotine dependence, cigarettes, uncomplicated; K21.9 Gastro-esophageal reflux disease without esophagitis; H40.9 Unspecified glaucoma; R59.0 Localized enlarged lymph nodes; Z79.01 Long term (current) use of anticoagulants; Z88.0 Allergy status to penicillin; Z91.048 Other nonmedicinal substance allergy status; Z72.89 Other problems related to lifestyle; Z53.20 Procedure and treatment not carried out because of patient's decision for unspecified reasons; Z90.49 Acquired absence of other specified parts of digestive tract; Z98.62 Peripheral vascular angioplasty status; Z79.02 Long term (current) use of antithrombotics/antiplatelets
CPT/HCPCS: 36600; 71010; 71260; 80048; 80053; 82805; 83605; 83735; 83880; 84100; 84145; 84443; 84484; 85025; 85610; 85730; 86140; 87040; 87070; 87205; 87449; 93005; 94640; 96365; 96375; 99291; A9270-GY; J0456; J2920; J2930; Q9967

== ENCOUNTER 2017-02-22 19:00 | Emergency (ER) | payer OTHER ==
[~2017-02-22 19:00] MED LIST changes: +*UNABLE1; +CEFT5 PO; +CENTRUM PO; +NEUR800 PO; +P20 PO; +PACERONE100 MG PO; +PROAIR HFA INH; +TRAZ50 PO; +VITAMIN D1000 UNI1 PO; +ZITHROMAX500 MG PO
[2017-02-22 20:05] LABS: BASOPHILS 0.3 %; BASOPHILS ABSOLUTE 0.02 10/3/uL (0.0-0.16); EOSINOPHILS 3.1 %; EOSINOPHILS ABSOLUTE 0.21 10/3/uL (0.0-0.53); HEMATOCRIT 44.2 % (40.0-51.0); HEMOGLOBIN 14.3 g/dL (13.6-17.8); IMMATURE GRANULOCYTES 0.4 %; IMMATURE GRANULOCYTES ABSOLUTE 0.03 10/3/uL (0.0-0.11); LYMPHOCYTES 15.9 %; LYMPHOCYTES ABSOLUTE 1.08 10/3/uL (0.67-4.30); MEAN CORPUS HGB CONC 32.4 g/dL (32.0-36.0); MEAN CORPUSCULAR HEMOGLOB 27.1 pg (26.0-34.0); MEAN CORPUSCULAR VOLUME 83.7 fL (80-100); MEAN PLATELET VOLUME 8.9 fL (9.2-13.0); MONOCYTES 9.1 %; MONOCYTES ABSOLUTE 0.62 10/3/uL (0.21-1.20); NEUTROPHILS 71.2 %; NEUTROPHILS ABSOLUTE 4.84 10/3/uL (2.02-8.40); PLATELET COUNT 145 10/3/uL (150-400); RBC DISTRIBUTION WIDTH 15.4 % (12.0-16.0); RED CELL COUNT 5.28 10/6/uL (4.7-6.1); WHITE BLOOD CELLS 6.8 10/3/uL (4.5-10.5)
[2017-02-22 20:06] LABS: MANUAL DIFF NO %
[2017-02-22 20:19] LABS: BUN (BLOOD UREA NITROGEN) 15 MG/DL (6-23); CHLORIDE, SERUM 104 MMOL/L (96-112); CO2 (CARBON DIOXIDE) 28 MMOL/L (24-34); CREATININE 1.14 MG/DL (0.70-1.30); GFR AFRICAN AMERICAN 80 ML/MIN (>=60); GFR NON AFRICAN AMERICAN 69 ML/MIN (>=60); GLUCOSE, SERUM 130 MG/DL (60-99); POTASSIUM, SERUM 3.8 MMOL/L (3.5-5.3); SODIUM, SERUM 139 MMOL/L (135-148)
[2017-02-22 20:32] LABS: INTERNATIONAL NORMAL RATI 1.5 UNITS (-); PROTIME (NOT ORD) 18.3 SEC (12.0-14.5)
[2017-02-22 20:33] LABS: PARTIAL THROMBO TIME 42.6 SEC (22.5-37.2)
== END 2017-02-22 22:15 | disposition home or self-care (01) ==
LOC: ER 19:00
PROVIDERS: Physician Assistant
DX: L97.529 Non-pressure chronic ulcer of other part of left foot with unspecified severity (principal); M79.605 Pain in left leg; F17.200 Nicotine dependence, unspecified, uncomplicated; Z88.1 Allergy status to other antibiotic agents; Z91.018 Allergy to other foods; Z91.048 Other nonmedicinal substance allergy status
CPT/HCPCS: 73630-LT; 80048; 85025; 85610; 85730; 87040; 93005; 93971; 99284; A9270-GY